=== PATIENT | male | born 1950 | race Caucasian/White ===

== ENCOUNTER 2019-11-17 03:48 | Emergency (ER) | payer MEDICARE, MEDICAID, SELFPAY ==
--- NOTE | 2019-11-17 03:52 | XRR_ITS ---
PROCEDURE INFORMATION: Exam: XR Chest, 1 View Exam date and time: 11/17/2019 4:40 AM Age: 69 years old Clinical indication: Dyspnea; Additional info: SOB TECHNIQUE: Imaging protocol: XR of the chest Views: 1 view. COMPARISON: No relevant prior studies available. FINDINGS: Lungs: Lungs are clear. Pleural space: There is no pleural effusion or pneumothorax. Heart/Mediastinum: Moderate enlargement of the cardiac silhouette. Mediastinal contours are unremarkable. Bones/joints: Bones are unremarkable. XR/XR chest 1V portable [id number] IMPRESSION: No acute findings.
[2019-11-17 03:58] VITALS: BP 134/73; PULSE 93; RESP 24; TEMP 37.1; O2SAT 96; BMI 32.1
--- NOTE | 2019-11-17 04:01 | ECG_ITS ---
Measurements Intervals [place] Rate: 83 P: DC: 0 QRS: 40 QRSD: 122 T: 17 QT: 385 QTc: 454 ATRIAL FIBRILLATION RIGHT BUNDLE BRANCH BLOCK [120+ ms QRS DURATION, UPRIGHT V1, 40+ ms S IN I/ I/aVL/V4/V5/V6] No previous ECG available for comparison Electronically Signed On 11-17-2019 19:04:47 CDT by Floresita Clayton M.D. [id number]
--- NOTE | 2019-11-17 04:02 | W.ED.SOB ---
Documented by User: Truman Smiley MD 11/17/19 05:10 HPI - SOB/Dyspnea General: Chief Complaint: Shortness of Breath/Dyspnea Stated Complaint: SOB/woke up choking Time Seen by Provider: 11/17/19 03:49 Source: patient Mode of arrival: ambulatory Limitations: no limitations History of Present Illness: HPI Narrative: 69-year-old male states he has a history of asthma. Patient states that he has been having shortness of breath since Monday. He states it is much worse this exertion. Patient denies any chest pain. He states this feels like when he has asthma attack years ago. He denies any recent long trips. Patient's currently in no distress at this time and oxygen is normal. He denies any cough or fever. MD elicited complaint: shortness of breath and asthma attack Pertinent past history: asthma Onset (ago): day(s) Severity: moderate Exacerbating factors: exertion Relieving factors: rest Associated symptoms: Deny abdominal pain, chest pain, fever(s), nausea or vomiting Review of Systems Const: Denies: fever(s), chills, body aches or change in appetite Eyes: Denies: blurry vision or eye discomfort ENMT: Denies: throat pain or dental pain Card: Denies: chest pain Resp: Reports: dyspnea GI: Denies: abdominal pain, nausea, vomiting or diarrhea : Denies: dysuria Musc: Denies: neck pain or back pain Skin/Breast: Denies: rash Neuro: Denies: headache(s) Psych: Denies: depression Marcus/Lymph: Denies: easy bruising All/Imm: Denies: urticaria PFSH ED PFSH: Social History Smoking and tobacco status: former smoker Physical Exam Const: COMMON NORMALS: no acute distress, patient oriented x3 and healthy appearing HENMT: COMMON NORMALS: normocephalic and atraumatic HEAD & SCALP: normocephalic and atraumatic Eye: COMMON NORMALS: Equal, round and reactive pupils present and EOMs intact bilaterally PUPIL: Yes Equal, round and reactive pupils present Neck/C-Spine: COMMON NORMALS: full ROM and supple Chest: COMMONS NORMALS: normal inspection of the chest and normal palpation of entire chest wall Resp: COMMON NORMALS: normal respiratory effort, No retractions and No use of accessory muscles AUSCULTATION: wheezes Cardio: COMMON NORMALS: regular rate, regular rhythm and No murmurs present (Cardio) RATE: regular rate RHYTHM: regular rhythm GI: COMMON NORMALS: Normal to inspection, nondistended, normoactive bowel sounds present, Soft to palpation, non-tender and no masses PALPATION: Yes Soft to palpation Extremity: COMMON NORMALS: normal to inspection and full ROM Neuro: COMMON NORMALS: patient oriented x3, moves all extremities and no focal motor deficits Psych: COMMON NORMALS: mental status grossly normal, Normal thought process present and cooperative THOUGHT PROCESS: Normal thought process present Skin: COMMON NORMALS: no rashes or lesions noted and no wounds GENERAL SKIN EXAM: no rashes or lesions noted Course Vital Signs: Vital signs: Vital Signs Temperature 98.7 F 11/17/19 03:58 Pulse Rate 89 11/17/19 06:32 Respiratory Rate 18 11/17/19 06:32 Blood Pressure 151/77 11/17/19 06:32 Pulse Oximetry 97 11/17/19 06:32 MDM - SOB/Dyspnea MDM Narrative: Medical decision making narrative: Daren presents for shortness of breath likely bronchitis. Patient does have an elevated d-dimer and will CT to rule out pulmonary embolism. We will also follow second troponin. Patient's care turned over to Dr. Bustos at this time. Lab Data: Labs: Lab Results 11/17/19 11/17/19 11/17/19 Range/Units 04:16 04:16 04:16 WBC 9.2 (4.0-10.0) 10^3/ uL RBC 4.13 (4.1-5.3) 10^6/u L Hgb 12.7 (11.7-16.6) g/dL Hct 38.8 L (42.0-52.0) % MCV 93.9 (80-94) fL MCH 30.8 (28.0-34.0) pg MCHC 32.7 (30.0-36.0) g/dL RDW 13.6 (12.1-15.1) % Plt Count 252 (130-400) 10^3/c mm MPV 11.0 H (7.4-10.4) fL Neut % (Auto) 56.3 % Lymph % (Auto) 29.8 % [place] % (Auto) 9.1 % Eos % (Auto) 3.5 % Baso % (Auto) 1.0 % Neut # (Auto) 5.2 (1.8-7.7) 10^3/u L Lymph # (Auto) 2.7 (0.8-4.8) 10^3/u L [place] # (Auto) 0.8 (0.2-0.9) 10^3/u L Eos # (Auto) 0.3 (0.0-0.8) 10^3/u L Baso # (Auto) 0.1 (0.0-0.1) 10^3/u L Nucleated RBC % (a uto) 0 % Nucleated RBCs # 0.0 /100WBC PT 14.10 H (10.5-13.3) SECO NDS INR 1.05 (0.8-1.2) D-Dimer (0-0.59) ug/mIFE U Sodium 139 (136-145) mmol/L Potassium 3.5 (3.5-5.1) mmol/L Chloride 97 L (98-107) mmol/L Carbon Dioxide 27 (22-29) mmol/L Anion Gap 18.5 (5-19) BUN 26 H (8-23) mg/dL Creatinine 1.5 H (0.7-1.2) mg/dL GFR Calculation 46.7 L (90-130) mL/min Glucose 186 H (65-115) mg/dL Calculated Osmolal ity 290 (285-295) mOsm/k g Calcium 7.9 L (8.5-10.5) mg/dL Total Bilirubin 0.2 (0.15-1.2) mg/dL AST 31 (0-40) U/L ALT 27 (0-41) U/L Alkaline Phosphata se 65 (40-130) IU/L Troponin T Baselin e (0-15) ng/L NT-Pro-B Natriuret Pep 1106 H (0-125) pg/mL Total Protein 6.4 L (6.6-8.7) g/dL Albumin 4.0 (3.5-5.2) g/dL Globulin 2.4 (1.3-4.6) g/dL 11/17/19 11/17/19 Range/Units 04:16 04:16 WBC (4.0-10.0) 10^3/ uL RBC (4.1-5.3) 10^6/u L Hgb (11.7-16.6) g/dL Hct (42.0-52.0) % MCV (80-94) fL MCH (28.0-34.0) pg MCHC (30.0-36.0) g/dL RDW (12.1-15.1) % Plt Count (130-400) 10^3/c mm MPV (7.4-10.4) fL Neut % (Auto) % Lymph % (Auto) % [place] % (Auto) % Eos % (Auto) % Baso % (Auto) % Neut # (Auto) (1.8-7.7) 10^3/u L Lymph # (Auto) (0.8-4.8) 10^3/u L [place] # (Auto) (0.2-0.9) 10^3/u L Eos # (Auto) (0.0-0.8) 10^3/u L Baso # (Auto) (0.0-0.1) 10^3/u L Nucleated RBC % (a uto) % Nucleated RBCs # /100WBC PT (10.5-13.3) SECO NDS INR (0.8-1.2) D-Dimer 2.25 H (0-0.59) ug/mIFE U Sodium (136-145) mmol/L Potassium (3.5-5.1) mmol/L Chloride (98-107) mmol/L Carbon Dioxide (22-29) mmol/L Anion Gap (5-19) BUN (8-23) mg/dL Creatinine (0.7-1.2) mg/dL GFR Calculation (90-130) mL/min Glucose (65-115) mg/dL Calculated Osmolal ity (285-295) mOsm/k g Calcium (8.5-10.5) mg/dL Total Bilirubin (0.15-1.2) mg/dL AST (0-40) U/L ALT (0-41) U/L Alkaline Phosphata se (40-130) IU/L Troponin T Baselin e 27 H (0-15) ng/L NT-Pro-B Natriuret Pep (0-125) pg/mL Total Protein (6.6-8.7) g/dL Albumin (3.5-5.2) g/dL Globulin (1.3-4.6) g/dL Imaging Data^: CXR: Attestation: I personally reviewed and interpreted this imaging study as follows: Radiologist's impression: [address] [place] [address] XRay Report Signed Patient: Daren Fisher Unit #: [id number] : 1950 Age/Sex: 69 / M ADM Date: 11/17/19 Loc: ER Room/Bed: Attending Dr: Ordering Provider/Ordering MD: Truman Smiley MD Date of Service: 11/17/19 Procedure(s): XR chest 1V portable [id number] Accession Number(s): [id number] Report Number: [id number] PROCEDURE INFORMATION: Exam: XR Chest, 1 View Exam date and time: 11/17/2019 4:40 AM Age: 69 years old Clinical indication: Dyspnea; Additional info: SOB TECHNIQUE: Imaging protocol: XR of the chest Views: 1 view. COMPARISON: No relevant prior studies available. FINDINGS: Lungs: Lungs are clear. Pleural space: There is no pleural effusion or pneumothorax. Heart/Mediastinum: Moderate enlargement of the cardiac silhouette. Mediastinal contours are unremarkable. Bones/joints: Bones are unremarkable. XR/XR chest 1V portable [id number] IMPRESSION: No acute findings. EKG Data^: EKG 1: Attestation: I personally reviewed and interpreted this EKG as follows: EKG Interpretation Date: 11/17/19 EKG interpretation time: 04:26 Interpretation: A. nicci heart rate [address] or T wave abnormalities QRS 122 QTC 425 Discharge Plan Discharge Patient Disposition: Home, Self-Care Clinical Impression: Bronchitis Condition: Stable Prescriptions: New Bactrim DS 800-160 mg tablet 1 tab PO Q12H 10 Days Qty: 20 RF: 0 albuterol sulfate 90 mcg/actuation HFA aerosol inhaler 2 inh INHALATION Q6H Qty: 8.5 RF: 0 Discharge Orders: Discharge Order (Routine); Ordered 11/17/19 Ordered By: Corbin Aburto Referrals: Fozia Irby FNP [Primary Care Provider] - Sign Out Sign Out Data: Patient Sign Out occurred on 11/17/19 at 06:04. Patient's care was discussed, and care was transferred from to Corbin Aburto. Coding Level of Care Code ED Last Sawyer for Chg Fwd Exam Comprehensive Documented by User: Corbin Aburto, 11/17/19 06:39 HPI - SOB/Dyspnea General: Chief Complaint: Shortness of Breath/Dyspnea Stated Complaint: SOB/woke up choking Time Seen by Provider: 11/17/19 03:49 PFSH ED PFSH: Social History Smoking and tobacco status: former smoker Course Vital Signs: Vital signs: Vital Signs Temperature 98.7 F 11/17/19 03:58 Pulse Rate 89 11/17/19 06:32 Respiratory Rate 18 11/17/19 06:32 Blood Pressure 151/77 11/17/19 06:32 Pulse Oximetry 97 11/17/19 06:32 MDM - SOB/Dyspnea Lab Data: Labs: Lab Results 11/17/19 11/17/19 11/17/19 Range/Units 04:16 04:16 04:16 WBC 9.2 (4.0-10.0) 10^3/ uL RBC 4.13 (4.1-5.3) 10^6/u L Hgb 12.7 (11.7-16.6) g/dL Hct 38.8 L (42.0-52.0) % MCV 93.9 (80-94) fL MCH 30.8 (28.0-34.0) pg MCHC 32.7 (30.0-36.0) g/dL RDW 13.6 (12.1-15.1) % Plt Count 252 (130-400) 10^3/c mm MPV 11.0 H (7.4-10.4) fL Neut % (Auto) 56.3 % Lymph % (Auto) 29.8 % [place] % (Auto) 9.1 % Eos % (Auto) 3.5 % Baso % (Auto) 1.0 % Neut # (Auto) 5.2 (1.8-7.7) 10^3/u L Lymph # (Auto) 2.7 (0.8-4.8) 10^3/u L [place] # (Auto) 0.8 (0.2-0.9) 10^3/u L Eos # (Auto) 0.3 (0.0-0.8) 10^3/u L Baso # (Auto) 0.1 (0.0-0.1) 10^3/u L Nucleated RBC % (a uto) 0 % Nucleated RBCs # 0.0 /100WBC PT 14.10 H (10.5-13.3) SECO NDS INR 1.05 (0.8-1.2) D-Dimer (0-0.59) ug/mIFE U Sodium 139 (136-145) mmol/L Potassium 3.5 (3.5-5.1) mmol/L Chloride 97 L (98-107) mmol/L Carbon Dioxide 27 (22-29) mmol/L Anion Gap 18.5 (5-19) BUN 26 H (8-23) mg/dL Creatinine 1.5 H (0.7-1.2) mg/dL GFR Calculation 46.7 L (90-130) mL/min Glucose 186 H (65-115) mg/dL Calculated Osmolal ity 290 (285-295) mOsm/k g Calcium 7.9 L (8.5-10.5) mg/dL Total Bilirubin 0.2 (0.15-1.2) mg/dL AST 31 (0-40) U/L ALT 27 (0-41) U/L Alkaline Phosphata se 65 (40-130) IU/L Troponin T Baselin e (0-15) ng/L NT-Pro-B Natriuret Pep 1106 H (0-125) pg/mL Total Protein 6.4 L (6.6-8.7) g/dL Albumin 4.0 (3.5-5.2) g/dL Globulin 2.4 (1.3-4.6) g/dL 11/17/19 11/17/19 Range/Units 04:16 04:16 WBC (4.0-10.0) 10^3/ uL RBC (4.1-5.3) 10^6/u L Hgb (11.7-16.6) g/dL Hct (42.0-52.0) % MCV (80-94) fL MCH (28.0-34.0) pg MCHC (30.0-36.0) g/dL RDW (12.1-15.1) % Plt Count (130-400) 10^3/c mm MPV (7.4-10.4) fL Neut % (Auto) % Lymph % (Auto) % [place] % (Auto) % Eos % (Auto) % Baso % (Auto) % Neut # (Auto) (1.8-7.7) 10^3/u L Lymph # (Auto) (0.8-4.8) 10^3/u L [place] # (Auto) (0.2-0.9) 10^3/u L Eos # (Auto) (0.0-0.8) 10^3/u L Baso # (Auto) (0.0-0.1) 10^3/u L Nucleated RBC % (a uto) % Nucleated RBCs # /100WBC PT (10.5-13.3) SECO NDS INR (0.8-1.2) D-Dimer 2.25 H (0-0.59) ug/mIFE U Sodium (136-145) mmol/L Potassium (3.5-5.1) mmol/L Chloride (98-107) mmol/L Carbon Dioxide (22-29) mmol/L Anion Gap (5-19) BUN (8-23) mg/dL Creatinine (0.7-1.2) mg/dL GFR Calculation (90-130) mL/min Glucose (65-115) mg/dL Calculated Osmolal ity (285-295) mOsm/k g Calcium (8.5-10.5) mg/dL Total Bilirubin (0.15-1.2) mg/dL AST (0-40) U/L ALT (0-41) U/L Alkaline Phosphata se (40-130) IU/L Troponin T Baselin e 27 H (0-15) ng/L NT-Pro-B Natriuret Pep (0-125) pg/mL Total Protein (6.6-8.7) g/dL Albumin (3.5-5.2) g/dL Globulin (1.3-4.6) g/dL Discharge Plan Discharge Patient Disposition: Home, Self-Care Clinical Impression: Bronchitis Condition: Stable Prescriptions: New Bactrim DS 800-160 mg tablet 1 tab PO Q12H 10 Days Qty: 20 RF: 0 albuterol sulfate 90 mcg/actuation HFA aerosol inhaler 2 inh INHALATION Q6H Qty: 8.5 RF: 0 Discharge Orders: Discharge Order (Routine); Ordered 11/17/19 Ordered By: Corbin Aburto Referrals: Fozia Irby [employer] SALES REPRESENTATIVE [Primary Care Provider] - Sign Out Sign Out Data: Patient Sign Out occurred on 11/17/19 at 06:04. Patient's care was discussed, and care was transferred from to Corbin Aburto. Coding Level of Care Code ED Last Sawyer for Chg Fwd Exam Comprehensive
--- NOTE | 2019-11-17 04:04 | PC.NURSE ---
Pt states that he left his list of medications at home.
[2019-11-17 04:12] VITALS: PULSE 89; RESP 20; O2SAT 97
[2019-11-17] MEDS: ipratropium-albuterol 3 mL Neb INHALATION (04:12)
[2019-11-17 04:15] VITALS: PULSE 89
[2019-11-17 04:27] LABS: Basophils # 0.1 10^3/uL (0.0-0.1); Eosinophils # 0.3 10^3/uL (0.0-0.8); Eosinophils % 3.5 %; Hematocrit 38.8 % (42.0-52.0); Hemoglobin 12.7 g/dL (11.7-16.6); Lymphocytes # 2.7 10^3/uL (0.8-4.8); Lymphocytes % 29.8 %; Mean Corpuscular HGB Conc 32.7 g/dL (30.0-36.0); Mean Corpuscular Hemoglobin 30.8 pg (28.0-34.0); Mean Corpuscular Volume 93.9 fL (80-94); Monocytes # 0.8 10^3/uL (0.2-0.9); Monocytes % 9.1 %; Neutrophils # 5.2 10^3/uL (1.8-7.7); Neutrophils % 56.3 %; Nucleated Red Blood Cells % 0 %; Platelet Count 252 10^3/cmm (130-400); Red Blood Count 4.13 10^6/uL (4.1-5.3); Red Cell Distribution Width 13.6 % (12.1-15.1); White Blood Count 9.2 10^3/uL (4.0-10.0)
[2019-11-17 04:36] LABS: INR 1.05 (0.8-1.2)
[2019-11-17 04:45] LABS: Troponin(5th) Baseline 27 ng/L (0-15)
[2019-11-17 04:50] LABS: Alanine Aminotransferase 27 U/L (0-41); Alkaline Phosphatase 65 IU/L (40-130); Anion Gap 18.5 (5-19); Aspartate Amino Transferase 31 U/L (0-40); Blood Urea Nitrogen 26 mg/dL (8-23); Calcium 7.9 mg/dL (8.5-10.5); Carbon Dioxide 27 mmol/L (22-29); Chloride 97 mmol/L (98-107); Globulin 2.4 g/dL (1.3-4.6); Glomerular Filtration Rate 46.7 mL/min (90-130); Glucose 186 mg/dL (65-115); NT Pro B Type Natriuretic Pept 1106 pg/mL (0-125); Osmolality Calculated 290 mOsm/kg (285-295); Potassium 3.5 mmol/L (3.5-5.1); Sodium 139 mmol/L (136-145); Total Bilirubin 0.2 mg/dL (0.15-1.2); Total Protein 6.4 g/dL (6.6-8.7)
[2019-11-17 05:06] LABS: D Dimer 2.25 ug/mIFEU (0-0.59)
--- NOTE | 2019-11-17 05:08 | CTR_ITS ---
PROCEDURE INFORMATION: Exam: CT Angiography Chest With Contrast Exam date and time: 11/17/2019 5:52 AM Age: 69 years old Clinical indication: Shortness of breath; Additional info: SOB TECHNIQUE: Imaging protocol: Computed tomographic angiography of the chest with intravenous contrast. 3D rendering: MIP and/or 3D reconstructed images were created by the technologist. Radiation optimization: All CT scans at this facility use at least one of these dose optimization techniques: automated exposure control; mA and/or kV adjustment per patient size (includes targeted exams where dose is matched to clinical indication); or iterative reconstruction. Contrast material: VISI 320; Contrast volume: 95 ml; Contrast route: LT AC; COMPARISON: CR XR chest 1V portable [id number] 11/17/2019 4:30 AM RADIATION DOSE METRICS: Total DLP: 643.92 mGy-cm FINDINGS: Pulmonary arteries: No visualized embolism as characterized to the most proximal segmental level. Consider alternative form of imaging if indicated. Aorta: Limited opacification of the thoracic aorta. No dissection. Thyroid: Soft tissue mass within the anterior mediastinum is believed to be thyroid. Lungs: Lungs are well aerated without a focal area of consolidation. Calcified granulomas most notably within the middle lobe Pleural space: Unremarkable. No pneumothorax. No pleural effusion. Heart: Unremarkable. No cardiomegaly. No pericardial effusion. Lymph nodes: Numerous calcified lymph nodes are present within the mediastinum and hilum. These are likely the radiographic manifestation of granulomatous disease. Liver: Hepatomegaly. Bones/joints: Unremarkable. No acute fracture. Soft tissues: Unremarkable. CT/CT angio chest PE protcl [id number] IMPRESSION: 1. No visualized embolism as characterized to the most proximal segmental level. Consider alternative form of imaging if indicated. 2. Soft tissue mass within the anterior mediastinum is believed to be thyroid. 3. Limited opacification of the thoracic aorta. No dissection. 4. Hepatomegaly. 5. Lungs are well aerated without a focal area of consolidation. COMMENTS: Consistent with the [place] [employer]'s Incidental Findings Committee white paper (J Am Mallory Radiol 2015): In patients aged 35 years and older with an incidental thyroid nodule equal to or greater than 1.[address], MRI or extrathyroidal US, further evaluation with dedicated thyroid US is recommended for patients with normal life expectancy and without comorbidities. For smaller nodules without suspicious features, no further evaluation or follow up is recommended. Radiation Dose CTDIVOL = (mGy): DLP = 643.92 (mGy-cm)
[2019-11-17 06:32] VITALS: BP 151/77; PULSE 89; RESP 18; O2SAT 97
== END 2019-11-17 06:49 | disposition home or self-care (01) ==
PROVIDERS: Emergency Medicine; Emergency Provider Family Medicine; PCP Nurse Practitioner Family
DX: J40 Bronchitis, not specified as acute or chronic (principal); Z87.891 Personal history of nicotine dependence
CPT/HCPCS: 12345; 71045; 71275; 80053; 83880; 84484; 85025; 85378; 85610; 93005; 94640; 96374; 96375; 99282; 99284; J2930; J7611

== ENCOUNTER → 2020-01-28 14:10 | Outpatient (BNVA) | payer MEDICARE, MEDICAID, SELFPAY | PROVIDERS: PCP Nurse Practitioner Family; Visit Provider Internal Medicine | DX: J06.9 Acute upper respiratory infection, unspecified (principal) | CPT/HCPCS: 87635 ==

== ENCOUNTER 2020-01-30 07:59 | Outpatient (CLI) | payer MEDICARE, SELFPAY ==
--- NOTE | 2020-01-30 08:20 | XR_ITS ---
WS: [id number] EXAM: Chest: PA and lateral DATE OF EXAMINATION: 01/30/2000 COMPARISON: Chest x-ray from 11/17/2019 HISTORY: Patient is 69 years old with cough for the last week. FINDINGS: The heart size is normal. The mediastinal contours are are similar.. Pulmonary vascularity is withi n normal limits. Chronic lung changes are demonstrated. Some degree of fibrosis is seen bilaterally. There is definite patchy peripheral infiltrate seen in the left mid and lower chest as well as behind the heart which is new since the prior examination. I also question some minimal peripheral patchy i nfiltrate within the right mid and lower chest. No effusion, or pneumothorax. Multilevel degenerativ e changes are seen in the spine. XR/XR chest 2V* [id number] IMPRESSION: Chronic lung changes demonstrated with underlying fibrosis interval findings of development of what appears to be patchy bilateral pneumonitis, left worse t wilson right.
== END 2020-01-30 08:00 | disposition home or self-care (01) ==
LOC: RADWPI 08:04
PROVIDERS: PCP Nurse Practitioner Family; Visit Provider Nurse Practitioner Family
DX: R05 Cough (principal); J84.10 Pulmonary fibrosis, unspecified
CPT/HCPCS: 71046

== ENCOUNTER 2021-02-16 13:15 | Outpatient (CLI) | payer MEDICARE, SELFPAY | END 2021-02-16 13:16 | disposition home or self-care (01) | LOC: WOUND 13:16 | PROVIDERS: PCP Nurse Practitioner Family; Visit Provider Emergency Medicine | DX: E11.621 Type 2 diabetes mellitus with foot ulcer (principal); L97.512 Non-pressure chronic ulcer of other part of right foot with fat layer exposed; E11.622 Type 2 diabetes mellitus with other skin ulcer; L97.822 Non-pressure chronic ulcer of other part of left lower leg with fat layer exposed; Z87.891 Personal history of nicotine dependence; L97.519 Non-pressure chronic ulcer of other part of right foot with unspecified severity | CPT/HCPCS: 11042; 73630; 87070; 87077; 87176; 87186; 87205; G0463 ==

== ENCOUNTER 2021-02-16 14:53 | Outpatient (CLI) | payer MEDICARE, SELFPAY ==
--- NOTE | 2021-02-16 15:00 | XR_ITS ---
WS: [id number] RIGHT FOOT: 3 VIEW(S) TECHNIQUE: AP, oblique and lateral. HISTORY: TYPE II DIABETES, FOOT ULCER COMPARISON: None available. No acute fracture or dislocation. Mild osteoarthritic changes at the midfoot and at the interphalangeal joints. Soft tissue erosion lori suring 10 mm involving the distal second toe. Very mild loss of normal cortex of the distal phalanx. Suspicious for osteomyelitis. Small calcaneal spur. XR/XR foot RT min 3V* [id number] IMPRESSION: 1. 10 mm soft tissue ulceration involving the distal second toe. 2. Suspicious for early changes of osteomyelitis involving the terminal tuft s econd toe.
== END 2021-02-16 14:54 | disposition home or self-care (01) ==
PROVIDERS: PCP Clinical Nurse Specialist Adult Health; Visit Provider Emergency Medicine
DX: E11.621 Type 2 diabetes mellitus with foot ulcer (principal); L97.519 Non-pressure chronic ulcer of other part of right foot with unspecified severity
CPT/HCPCS: 73630

== ENCOUNTER 2021-02-23 08:07 | Outpatient (CLI) | payer MEDICARE, SELFPAY | END 2021-02-23 08:08 | disposition home or self-care (01) | LOC: WOUND 08:09 | PROVIDERS: PCP Clinical Nurse Specialist Adult Health; Visit Provider Thoracic Surgery (Cardiothoracic Vascular Surgery) | DX: E11.621 Type 2 diabetes mellitus with foot ulcer (principal); L97.516 Non-pressure chronic ulcer of other part of right foot with bone involvement without evidence of necrosis; E11.622 Type 2 diabetes mellitus with other skin ulcer; L97.822 Non-pressure chronic ulcer of other part of left lower leg with fat layer exposed; Z87.891 Personal history of nicotine dependence; L97.509 Non-pressure chronic ulcer of other part of unspecified foot with unspecified severity | CPT/HCPCS: 11042; 36415; 80053; 84134; 85025; 85651; 86140 ==

== ENCOUNTER 2021-02-23 15:18 | Outpatient (CLI) | payer MEDICARE, SELFPAY ==
[2021-02-23 15:42] LABS: Basophils # 0.1 10^3/uL (0.0-0.1); Basophils % 0.9 %; Eosinophils # 0.2 10^3/uL (0.0-0.8); Eosinophils % 1.7 %; Hematocrit 40.7 % (42.0-52.0); Hemoglobin 13.4 g/dL (11.7-16.6); Lymphocytes # 2.2 10^3/uL (0.8-4.8); Lymphocytes % 24.5 %; Mean Corpuscular HGB Conc 32.9 g/dL (30.0-36.0); Mean Corpuscular Hemoglobin 30.8 pg (28.0-34.0); Mean Corpuscular Volume 93.6 fl (80-94); Mean Platelet Volume 9.8 fL (7.4-10.4); Monocytes # 0.8 10^3/uL (0.2-0.9); Monocytes % 8.4 %; Neutrophils # 5.85 10^3/uL (1.8-7.7); Neutrophils % 64.3 %; Nucleated Red Blood Cells % 0 %; Platelet Count 279 10^3/cmm (130-400); Red Blood Count 4.35 10^6/uL (4.1-5.3); White Blood Count 9.1 10^3/uL (4.0-10.0)
[2021-02-23 16:27] LABS: Alanine Aminotransferase 23 U/L (0-41); Albumin Level 3.9 g/dL (3.5-5.2); Alkaline Phosphatase 69 IU/L (40-130); Anion Gap 17.8 (5-19); Aspartate Amino Transferase 26 U/L (0-40); Blood Urea Nitrogen 21 mg/dL (8-23); C Reactive Protein 4.6 mg/L (0.0-4.9); Calcium 8.8 mg/dL (8.5-10.5); Carbon Dioxide 27 mmol/L (22-29); Chloride 95 mmol/L (98-107); Globulin 3.3 g/dL (1.3-4.6); Glomerular Filtration Rate 74.3 mL/min (90-130); Glucose 155 mg/dL (65-115); Osmolality Calculated 288 mOsm/kg (285-295); Potassium 3.8 mmol/L (3.5-5.1); Sodium 136 mmol/L (136-145); Total Bilirubin 0.2 mg/dL (0.15-1.2); Total Protein 7.2 g/dL (6.6-8.7)
[2021-02-23 17:18] LABS: Prealbumin 26.3 mg/dL (20-40)
[2021-02-23 17:31] LABS: Erythrocyte Sedimentation Rate 40 mm/hr (0-10)
== END 2021-02-23 15:19 | disposition home or self-care (01) ==
LOC: LAB 15:22
PROVIDERS: PCP Clinical Nurse Specialist Adult Health; Visit Provider Thoracic Surgery (Cardiothoracic Vascular Surgery)
DX: E11.621 Type 2 diabetes mellitus with foot ulcer (principal); L97.509 Non-pressure chronic ulcer of other part of unspecified foot with unspecified severity
CPT/HCPCS: 36415; 80053; 84134; 85025; 85651; 86140

== ENCOUNTER 2021-03-02 08:15 | Outpatient (CLI) | payer MEDICARE, SELFPAY | END 2021-03-02 08:16 | disposition home or self-care (01) | LOC: WOUND 08:16 | PROVIDERS: PCP Clinical Nurse Specialist Adult Health; Visit Provider Thoracic Surgery (Cardiothoracic Vascular Surgery) | DX: E11.621 Type 2 diabetes mellitus with foot ulcer (principal); L97.511 Non-pressure chronic ulcer of other part of right foot limited to breakdown of skin; E11.622 Type 2 diabetes mellitus with other skin ulcer; L97.829 Non-pressure chronic ulcer of other part of left lower leg with unspecified severity; Z87.891 Personal history of nicotine dependence | CPT/HCPCS: 97597 ==

== ENCOUNTER 2021-03-09 08:20 | Outpatient (CLI) | payer MEDICARE, SELFPAY | END 2021-03-09 08:21 | disposition home or self-care (01) | LOC: WOUND 08:21 | PROVIDERS: PCP Clinical Nurse Specialist Adult Health; Visit Provider Thoracic Surgery (Cardiothoracic Vascular Surgery) | DX: E11.621 Type 2 diabetes mellitus with foot ulcer (principal); L97.511 Non-pressure chronic ulcer of other part of right foot limited to breakdown of skin; Z87.891 Personal history of nicotine dependence | CPT/HCPCS: 97597 ==

== ENCOUNTER 2021-03-16 08:11 | Outpatient (CLI) | payer MEDICARE, SELFPAY | END 2021-03-16 08:12 | disposition home or self-care (01) | LOC: WOUND 08:12 | PROVIDERS: PCP Clinical Nurse Specialist Adult Health; Visit Provider Thoracic Surgery (Cardiothoracic Vascular Surgery) | DX: E11.621 Type 2 diabetes mellitus with foot ulcer (principal); L97.511 Non-pressure chronic ulcer of other part of right foot limited to breakdown of skin; Z87.891 Personal history of nicotine dependence | CPT/HCPCS: 36415; 80048; 85025; 97597 ==

== ENCOUNTER 2021-03-16 09:04 | Outpatient (CLI) | payer MEDICARE, SELFPAY ==
[2021-03-16 09:46] LABS: Basophils # 0.1 10^3/uL (0.0-0.1); Basophils % 0.9 %; Eosinophils # 0.2 10^3/uL (0.0-0.8); Eosinophils % 2.3 %; Hematocrit 39.3 % (42.0-52.0); Hemoglobin 12.6 g/dL (11.7-16.6); Lymphocytes # 1.8 10^3/uL (0.8-4.8); Lymphocytes % 17.4 %; Mean Corpuscular HGB Conc 32.1 g/dL (30.0-36.0); Mean Corpuscular Volume 96.8 fl (80-94); Mean Platelet Volume 9.8 fL (7.4-10.4); Monocytes # 0.8 10^3/uL (0.2-0.9); Neutrophils % 71.1 %; Nucleated Red Blood Cells % 0 %; Platelet Count 230 10^3/cmm (130-400); Red Blood Count 4.06 10^6/uL (4.1-5.3); Red Cell Distribution Width 14.9 % (12.1-15.1); White Blood Count 10.1 10^3/uL (4.0-10.0)
[2021-03-16 10:14] LABS: Anion Gap 19.1 (5-19); Blood Urea Nitrogen 19 mg/dL (8-23); Calcium 8.6 mg/dL (8.5-10.5); Carbon Dioxide 25 mmol/L (22-29); Chloride 99 mmol/L (98-107); Glomerular Filtration Rate 66.6 mL/min (90-130); Glucose 152 mg/dL (65-115); Osmolality Calculated 293 mOsm/kg (285-295); Potassium 4.1 mmol/L (3.5-5.1); Sodium 139 mmol/L (136-145)
== END 2021-03-16 09:05 | disposition home or self-care (01) ==
LOC: LAB 09:10
PROVIDERS: PCP Clinical Nurse Specialist Adult Health; Visit Provider Thoracic Surgery (Cardiothoracic Vascular Surgery)
DX: E11.621 Type 2 diabetes mellitus with foot ulcer (principal)
CPT/HCPCS: 36415; 80048; 85025

== ENCOUNTER 2021-03-24 08:18 | Outpatient (CLI) | payer MEDICARE, SELFPAY | END 2021-03-24 08:19 | disposition home or self-care (01) | LOC: WOUND 08:19 | PROVIDERS: PCP Clinical Nurse Specialist Adult Health; Visit Provider Thoracic Surgery (Cardiothoracic Vascular Surgery) | DX: E11.621 Type 2 diabetes mellitus with foot ulcer (principal); L97.511 Non-pressure chronic ulcer of other part of right foot limited to breakdown of skin; I87.2 Venous insufficiency (chronic) (peripheral); L97.822 Non-pressure chronic ulcer of other part of left lower leg with fat layer exposed; Z87.891 Personal history of nicotine dependence | CPT/HCPCS: 11042; 97597 ==

== ENCOUNTER 2021-03-26 07:49 | Outpatient (CLI) | payer MEDICARE, SELFPAY | END 2021-03-26 07:50 | disposition home or self-care (01) | LOC: WOUND 07:50 | PROVIDERS: PCP Clinical Nurse Specialist Adult Health; Visit Provider Nurse Practitioner Family | DX: E11.621 Type 2 diabetes mellitus with foot ulcer (principal); L97.511 Non-pressure chronic ulcer of other part of right foot limited to breakdown of skin; I87.2 Venous insufficiency (chronic) (peripheral); L97.822 Non-pressure chronic ulcer of other part of left lower leg with fat layer exposed | CPT/HCPCS: 29581; A6252 ==

== ENCOUNTER 2021-03-31 08:39 | Outpatient (CLI) | payer MEDICARE, SELFPAY | END 2021-03-31 08:40 | disposition home or self-care (01) | LOC: WOUND 08:40 | PROVIDERS: PCP Clinical Nurse Specialist Adult Health; Visit Provider Nurse Practitioner Family | DX: E11.621 Type 2 diabetes mellitus with foot ulcer (principal); L97.512 Non-pressure chronic ulcer of other part of right foot with fat layer exposed; I87.2 Venous insufficiency (chronic) (peripheral); L97.822 Non-pressure chronic ulcer of other part of left lower leg with fat layer exposed; Z87.891 Personal history of nicotine dependence | CPT/HCPCS: 11042 ==

== ENCOUNTER 2021-04-07 08:03 | Outpatient (CLI) | payer MEDICARE, SELFPAY | END 2021-04-07 08:04 | disposition home or self-care (01) | LOC: WOUND 08:04 | PROVIDERS: PCP Clinical Nurse Specialist Adult Health; Visit Provider Thoracic Surgery (Cardiothoracic Vascular Surgery) | DX: E11.621 Type 2 diabetes mellitus with foot ulcer (principal); L97.511 Non-pressure chronic ulcer of other part of right foot limited to breakdown of skin; I87.2 Venous insufficiency (chronic) (peripheral); L97.822 Non-pressure chronic ulcer of other part of left lower leg with fat layer exposed; Z87.891 Personal history of nicotine dependence | CPT/HCPCS: 29581 ==

== ENCOUNTER 2021-04-14 08:19 | Outpatient (CLI) | payer MEDICARE, SELFPAY | END 2021-04-14 08:20 | disposition home or self-care (01) | LOC: WOUND 08:20 | PROVIDERS: PCP Clinical Nurse Specialist Adult Health; Visit Provider Thoracic Surgery (Cardiothoracic Vascular Surgery) | DX: I96 Gangrene, not elsewhere classified (principal); E11.621 Type 2 diabetes mellitus with foot ulcer; L97.511 Non-pressure chronic ulcer of other part of right foot limited to breakdown of skin; Z87.891 Personal history of nicotine dependence; I10 Essential (primary) hypertension; M06.9 Rheumatoid arthritis, unspecified | CPT/HCPCS: 97597 ==

== ENCOUNTER 2021-04-21 08:00 | Outpatient (CLI) | payer MEDICARE, SELFPAY | END 2021-04-21 08:01 | disposition home or self-care (01) | LOC: WOUND 08:02 | PROVIDERS: PCP Clinical Nurse Specialist Adult Health; Visit Provider Thoracic Surgery (Cardiothoracic Vascular Surgery) | DX: E11.621 Type 2 diabetes mellitus with foot ulcer (principal); L97.511 Non-pressure chronic ulcer of other part of right foot limited to breakdown of skin; Z87.891 Personal history of nicotine dependence | CPT/HCPCS: 97597 ==

== ENCOUNTER 2021-04-28 08:16 | Outpatient (CLI) | payer MEDICARE, SELFPAY | END 2021-04-28 08:17 | disposition home or self-care (01) | LOC: WOUND 08:18 | PROVIDERS: PCP Clinical Nurse Specialist Adult Health; Visit Provider Nurse Practitioner Family | DX: E11.621 Type 2 diabetes mellitus with foot ulcer (principal); L97.512 Non-pressure chronic ulcer of other part of right foot with fat layer exposed; I10 Essential (primary) hypertension; M06.9 Rheumatoid arthritis, unspecified; Z87.891 Personal history of nicotine dependence | CPT/HCPCS: 11042 ==

== ENCOUNTER 2021-05-12 08:13 | Outpatient (CLI) | payer MEDICARE, SELFPAY | END 2021-05-12 08:14 | disposition home or self-care (01) | LOC: WOUND 08:14 | PROVIDERS: PCP Clinical Nurse Specialist Adult Health; Visit Provider Nurse Practitioner Family | DX: E11.621 Type 2 diabetes mellitus with foot ulcer (principal); L97.511 Non-pressure chronic ulcer of other part of right foot limited to breakdown of skin; I87.2 Venous insufficiency (chronic) (peripheral); L97.811 Non-pressure chronic ulcer of other part of right lower leg limited to breakdown of skin; I10 Essential (primary) hypertension; M06.9 Rheumatoid arthritis, unspecified; Z87.891 Personal history of nicotine dependence | CPT/HCPCS: 11042 ==

== ENCOUNTER 2021-05-19 08:10 | Outpatient (CLI) | payer MEDICARE, SELFPAY | END 2021-05-19 08:11 | disposition home or self-care (01) | LOC: WOUND 08:11 | PROVIDERS: PCP Clinical Nurse Specialist Adult Health; Visit Provider Thoracic Surgery (Cardiothoracic Vascular Surgery) | DX: E11.621 Type 2 diabetes mellitus with foot ulcer (principal); L97.511 Non-pressure chronic ulcer of other part of right foot limited to breakdown of skin; I87.2 Venous insufficiency (chronic) (peripheral); L97.811 Non-pressure chronic ulcer of other part of right lower leg limited to breakdown of skin; Z87.891 Personal history of nicotine dependence | CPT/HCPCS: 97597; A6252 ==

== ENCOUNTER 2021-05-24 15:22 | Outpatient (CLI) | payer MEDICARE, SELFPAY | END 2021-05-24 15:23 | disposition home or self-care (01) | LOC: WOUND 15:24 | PROVIDERS: PCP Clinical Nurse Specialist Adult Health; Visit Provider Emergency Medicine | DX: E11.621 Type 2 diabetes mellitus with foot ulcer (principal); L97.511 Non-pressure chronic ulcer of other part of right foot limited to breakdown of skin; I87.2 Venous insufficiency (chronic) (peripheral); L97.811 Non-pressure chronic ulcer of other part of right lower leg limited to breakdown of skin; Z87.891 Personal history of nicotine dependence | CPT/HCPCS: 29581; A6252 ==

== ENCOUNTER 2021-05-26 08:36 | Outpatient (CLI) | payer MEDICARE, SELFPAY | END 2021-05-26 08:37 | disposition home or self-care (01) | LOC: WOUND 08:39 | PROVIDERS: PCP Clinical Nurse Specialist Adult Health; Visit Provider Thoracic Surgery (Cardiothoracic Vascular Surgery) | DX: E11.621 Type 2 diabetes mellitus with foot ulcer (principal); L97.519 Non-pressure chronic ulcer of other part of right foot with unspecified severity; I87.2 Venous insufficiency (chronic) (peripheral); L97.811 Non-pressure chronic ulcer of other part of right lower leg limited to breakdown of skin; Z87.891 Personal history of nicotine dependence | CPT/HCPCS: 97597; A6252 ==

== ENCOUNTER 2021-06-02 08:06 | Outpatient (CLI) | payer MEDICARE, SELFPAY | END 2021-06-02 08:07 | disposition home or self-care (01) | LOC: WOUND 08:07 | PROVIDERS: PCP Clinical Nurse Specialist Adult Health; Visit Provider Nurse Practitioner Family | DX: E11.621 Type 2 diabetes mellitus with foot ulcer (principal); L97.511 Non-pressure chronic ulcer of other part of right foot limited to breakdown of skin; Z87.891 Personal history of nicotine dependence | CPT/HCPCS: 11042; A6212 ==

== ENCOUNTER 2021-06-09 07:53 | Outpatient (CLI) | payer MEDICARE, SELFPAY | END 2021-06-09 07:54 | disposition home or self-care (01) | LOC: WOUND 07:54 | PROVIDERS: PCP Clinical Nurse Specialist Adult Health; Visit Provider Nurse Practitioner Family | DX: Z09 Encounter for follow-up examination after completed treatment for conditions other than malignant neoplasm (principal); Z87.891 Personal history of nicotine dependence; E11.9 Type 2 diabetes mellitus without complications | CPT/HCPCS: 99212 ==

== ENCOUNTER → 2021-12-23 08:20 | Outpatient (BNVA) | payer MEDICARE, MEDICAID, SELFPAY | PROVIDERS: PCP Clinical Nurse Specialist Adult Health; Visit Provider Nurse Practitioner Family | DX: I96 Gangrene, not elsewhere classified (principal); L97.821 Non-pressure chronic ulcer of other part of left lower leg limited to breakdown of skin; L97.811 Non-pressure chronic ulcer of other part of right lower leg limited to breakdown of skin | CPT/HCPCS: 11042; 99213 ==

== ENCOUNTER → 2021-12-27 10:24 | Outpatient (BNVA) | payer MEDICARE, MEDICAID, SELFPAY | PROVIDERS: PCP Clinical Nurse Specialist Adult Health; Visit Provider Thoracic Surgery (Cardiothoracic Vascular Surgery) | DX: Z51.89 Encounter for other specified aftercare (principal) | CPT/HCPCS: 29581 ==

== ENCOUNTER → 2021-12-30 13:04 | Outpatient (BNVA) | payer MEDICARE, MEDICAID, SELFPAY | PROVIDERS: PCP Clinical Nurse Specialist Adult Health; Visit Provider Nurse Practitioner Family | DX: I96 Gangrene, not elsewhere classified (principal); L97.821 Non-pressure chronic ulcer of other part of left lower leg limited to breakdown of skin; L97.811 Non-pressure chronic ulcer of other part of right lower leg limited to breakdown of skin | CPT/HCPCS: 29581 ==

== ENCOUNTER → 2022-01-05 13:20 | Outpatient (BNVA) | payer MEDICARE, MEDICAID, SELFPAY | PROVIDERS: PCP Clinical Nurse Specialist Adult Health; Visit Provider Nurse Practitioner Family | DX: Z09 Encounter for follow-up examination after completed treatment for conditions other than malignant neoplasm (principal) | CPT/HCPCS: 99212 ==

== ENCOUNTER → 2022-01-24 06:51 | Outpatient (BNVA) | payer MEDICARE, MEDICAID, SELFPAY | PROVIDERS: PCP Clinical Nurse Specialist Adult Health; Visit Provider Clinical Nurse Specialist Adult Health | DX: E11.610 Type 2 diabetes mellitus with diabetic neuropathic arthropathy (principal); I10 Essential (primary) hypertension; E78.5 Hyperlipidemia, unspecified | CPT/HCPCS: 80053; 83036; 85025 ==

== ENCOUNTER → 2022-01-24 09:07 | Outpatient (BNVA) | payer MEDICARE, MEDICAID, SELFPAY | PROVIDERS: PCP Clinical Nurse Specialist Adult Health; Referring Provider Nurse Practitioner Family; Visit Provider Podiatrist Foot & Ankle Surgery | DX: E11.8 Type 2 diabetes mellitus with unspecified complications (principal); E11.610 Type 2 diabetes mellitus with diabetic neuropathic arthropathy; B35.1 Tinea unguium; G62.9 Polyneuropathy, unspecified; L60.3 Nail dystrophy; Z79.84 Long term (current) use of oral hypoglycemic drugs | CPT/HCPCS: 11055; 11721 ==

== ENCOUNTER → 2022-03-28 09:23 | Outpatient (BNVA) | payer MEDICARE, MEDICAID, SELFPAY | PROVIDERS: PCP Clinical Nurse Specialist Adult Health; Visit Provider Podiatrist Foot & Ankle Surgery | DX: E11.8 Type 2 diabetes mellitus with unspecified complications (principal); E11.610 Type 2 diabetes mellitus with diabetic neuropathic arthropathy; B35.1 Tinea unguium; G62.9 Polyneuropathy, unspecified; I83.009 Varicose veins of unspecified lower extremity with ulcer of unspecified site; L97.919 Non-pressure chronic ulcer of unspecified part of right lower leg with unspecified severity; L97.929 Non-pressure chronic ulcer of unspecified part of left lower leg with unspecified severity; Z79.84 Long term (current) use of oral hypoglycemic drugs | CPT/HCPCS: 99213 ==

== ENCOUNTER → 2022-04-12 08:06 | Outpatient (BNVA) | payer MEDICARE, MEDICAID, SELFPAY | PROVIDERS: PCP Clinical Nurse Specialist Adult Health; Visit Provider Nurse Practitioner Family | DX: I96 Gangrene, not elsewhere classified (principal); I87.2 Venous insufficiency (chronic) (peripheral); L97.812 Non-pressure chronic ulcer of other part of right lower leg with fat layer exposed; L97.822 Non-pressure chronic ulcer of other part of left lower leg with fat layer exposed | CPT/HCPCS: 11042; 99213; A6210; A6251 ==

== ENCOUNTER → 2022-04-13 07:49 | Outpatient (BNVA) | payer MEDICARE, MEDICAID, SELFPAY | PROVIDERS: PCP Clinical Nurse Specialist Adult Health; Visit Provider Clinical Nurse Specialist Adult Health | DX: E11.610 Type 2 diabetes mellitus with diabetic neuropathic arthropathy (principal); E78.5 Hyperlipidemia, unspecified; I10 Essential (primary) hypertension; E78.2 Mixed hyperlipidemia | CPT/HCPCS: 80053; 80061; 83036; 85025 ==

== ENCOUNTER → 2022-04-15 07:56 | Outpatient (BNVA) | payer MEDICARE, MEDICAID, SELFPAY | PROVIDERS: PCP Clinical Nurse Specialist Adult Health; Visit Provider Surgery | DX: I96 Gangrene, not elsewhere classified (principal); I87.2 Venous insufficiency (chronic) (peripheral); L97.812 Non-pressure chronic ulcer of other part of right lower leg with fat layer exposed; L97.822 Non-pressure chronic ulcer of other part of left lower leg with fat layer exposed | CPT/HCPCS: 29581; A6252 ==

== ENCOUNTER → 2022-04-21 09:50 | Outpatient (BNVA) | payer MEDICARE, MEDICAID, SELFPAY | PROVIDERS: PCP Clinical Nurse Specialist Adult Health; Visit Provider Nurse Practitioner Family | DX: I96 Gangrene, not elsewhere classified (principal); I87.2 Venous insufficiency (chronic) (peripheral); L97.812 Non-pressure chronic ulcer of other part of right lower leg with fat layer exposed; L97.822 Non-pressure chronic ulcer of other part of left lower leg with fat layer exposed | CPT/HCPCS: 11042 ==

== ENCOUNTER → 2022-04-28 08:00 | Outpatient (BNVA) | payer MEDICARE, MEDICAID, SELFPAY | PROVIDERS: PCP Clinical Nurse Specialist Adult Health; Visit Provider Nurse Practitioner Family | DX: I96 Gangrene, not elsewhere classified (principal); I87.2 Venous insufficiency (chronic) (peripheral); L97.812 Non-pressure chronic ulcer of other part of right lower leg with fat layer exposed; L97.822 Non-pressure chronic ulcer of other part of left lower leg with fat layer exposed | CPT/HCPCS: 99212 ==

== ENCOUNTER → 2022-05-30 08:46 | Outpatient (BNVA) | payer MEDICARE, MEDICAID, SELFPAY | PROVIDERS: PCP Clinical Nurse Specialist Adult Health; Visit Provider Podiatrist Foot & Ankle Surgery | DX: E11.8 Type 2 diabetes mellitus with unspecified complications (principal); E11.610 Type 2 diabetes mellitus with diabetic neuropathic arthropathy; E11.622 Type 2 diabetes mellitus with other skin ulcer; L97.811 Non-pressure chronic ulcer of other part of right lower leg limited to breakdown of skin; L97.821 Non-pressure chronic ulcer of other part of left lower leg limited to breakdown of skin; Z79.84 Long term (current) use of oral hypoglycemic drugs; B35.1 Tinea unguium; G62.9 Polyneuropathy, unspecified; I83.009 Varicose veins of unspecified lower extremity with ulcer of unspecified site | CPT/HCPCS: 11721; 99213 ==

== ENCOUNTER → 2022-06-14 08:14 | Outpatient (BNVA) | payer MEDICARE, MEDICAID, SELFPAY | PROVIDERS: PCP Clinical Nurse Specialist Adult Health; Visit Provider Podiatrist Foot & Ankle Surgery | DX: E11.621 Type 2 diabetes mellitus with foot ulcer (principal); L97.522 Non-pressure chronic ulcer of other part of left foot with fat layer exposed; L97.521 Non-pressure chronic ulcer of other part of left foot limited to breakdown of skin; Z79.84 Long term (current) use of oral hypoglycemic drugs; E11.610 Type 2 diabetes mellitus with diabetic neuropathic arthropathy; B35.1 Tinea unguium; G62.9 Polyneuropathy, unspecified; I83.009 Varicose veins of unspecified lower extremity with ulcer of unspecified site | CPT/HCPCS: 99213 ==

== ENCOUNTER → 2022-06-22 07:56 | Outpatient (BNVA) | payer MEDICARE, MEDICAID, SELFPAY | PROVIDERS: PCP Clinical Nurse Specialist Adult Health; Visit Provider Thoracic Surgery (Cardiothoracic Vascular Surgery) | DX: I96 Gangrene, not elsewhere classified (principal); E11.621 Type 2 diabetes mellitus with foot ulcer; L97.522 Non-pressure chronic ulcer of other part of left foot with fat layer exposed; L97.512 Non-pressure chronic ulcer of other part of right foot with fat layer exposed; E11.622 Type 2 diabetes mellitus with other skin ulcer; L97.822 Non-pressure chronic ulcer of other part of left lower leg with fat layer exposed; L97.811 Non-pressure chronic ulcer of other part of right lower leg limited to breakdown of skin | CPT/HCPCS: 97597; 97598; 99213; A6252 ==

== ENCOUNTER → 2022-06-27 13:06 | Outpatient (BNVA) | payer MEDICARE, MEDICAID, SELFPAY | PROVIDERS: PCP Clinical Nurse Specialist Adult Health; Visit Provider Thoracic Surgery (Cardiothoracic Vascular Surgery) | DX: I96 Gangrene, not elsewhere classified (principal); E11.621 Type 2 diabetes mellitus with foot ulcer; L97.522 Non-pressure chronic ulcer of other part of left foot with fat layer exposed; Z09 Encounter for follow-up examination after completed treatment for conditions other than malignant neoplasm | CPT/HCPCS: 97597 ==

== ENCOUNTER → 2022-07-04 14:49 | Outpatient (BNVA) | payer MEDICARE, MEDICAID, SELFPAY | PROVIDERS: PCP Clinical Nurse Specialist Adult Health; Visit Provider Thoracic Surgery (Cardiothoracic Vascular Surgery) | DX: I96 Gangrene, not elsewhere classified (principal); E11.621 Type 2 diabetes mellitus with foot ulcer; L97.522 Non-pressure chronic ulcer of other part of left foot with fat layer exposed | CPT/HCPCS: 99212; A6210 ==

== ENCOUNTER → 2022-07-11 14:07 | Outpatient (BNVA) | payer MEDICARE, MEDICAID, SELFPAY | PROVIDERS: PCP Clinical Nurse Specialist Adult Health; Visit Provider Thoracic Surgery (Cardiothoracic Vascular Surgery) | DX: I96 Gangrene, not elsewhere classified (principal); E11.621 Type 2 diabetes mellitus with foot ulcer; L97.522 Non-pressure chronic ulcer of other part of left foot with fat layer exposed | CPT/HCPCS: 97597 ==

== ENCOUNTER → 2022-07-18 11:42 | Outpatient (BNVA) | payer MEDICARE, MEDICAID, SELFPAY | PROVIDERS: PCP Clinical Nurse Specialist Adult Health; Visit Provider Thoracic Surgery (Cardiothoracic Vascular Surgery) | DX: Z09 Encounter for follow-up examination after completed treatment for conditions other than malignant neoplasm (principal); E11.610 Type 2 diabetes mellitus with diabetic neuropathic arthropathy; E11.621 Type 2 diabetes mellitus with foot ulcer; L97.511 Non-pressure chronic ulcer of other part of right foot limited to breakdown of skin; L97.512 Non-pressure chronic ulcer of other part of right foot with fat layer exposed; E11.8 Type 2 diabetes mellitus with unspecified complications; Z79.84 Long term (current) use of oral hypoglycemic drugs; B35.1 Tinea unguium; G62.9 Polyneuropathy, unspecified; I87.2 Venous insufficiency (chronic) (peripheral) | CPT/HCPCS: 80053; 83036; 85025; 99212; 99213; A6021 ==

== ENCOUNTER → 2022-07-25 09:45 | Outpatient (BNVA) | payer MEDICARE, MEDICAID, SELFPAY | PROVIDERS: PCP Clinical Nurse Specialist Adult Health; Visit Provider Thoracic Surgery (Cardiothoracic Vascular Surgery) | DX: S81.812A Laceration without foreign body, left lower leg, initial encounter (principal); S81.811A Laceration without foreign body, right lower leg, initial encounter; X58.XXXA Exposure to other specified factors, initial encounter; I96 Gangrene, not elsewhere classified | CPT/HCPCS: 97597; 97598 ==

== ENCOUNTER → 2022-07-27 08:14 | Outpatient (BNVA) | payer MEDICARE, MEDICAID, SELFPAY | PROVIDERS: PCP Clinical Nurse Specialist Adult Health; Visit Provider Thoracic Surgery (Cardiothoracic Vascular Surgery) | DX: I96 Gangrene, not elsewhere classified (principal); L97.822 Non-pressure chronic ulcer of other part of left lower leg with fat layer exposed; L97.812 Non-pressure chronic ulcer of other part of right lower leg with fat layer exposed | CPT/HCPCS: 29581 ==

== ENCOUNTER → 2022-08-01 09:51 | Outpatient (BNVA) | payer MEDICARE, MEDICAID, SELFPAY | PROVIDERS: PCP Clinical Nurse Specialist Adult Health; Visit Provider Thoracic Surgery (Cardiothoracic Vascular Surgery) | DX: S81.812A Laceration without foreign body, left lower leg, initial encounter (principal); X58.XXXA Exposure to other specified factors, initial encounter; Z09 Encounter for follow-up examination after completed treatment for conditions other than malignant neoplasm | CPT/HCPCS: 97597 ==

== ENCOUNTER → 2022-08-08 09:18 | Outpatient (BNVA) | payer MEDICARE, MEDICAID, SELFPAY | PROVIDERS: PCP Clinical Nurse Specialist Adult Health; Visit Provider Thoracic Surgery (Cardiothoracic Vascular Surgery) | DX: Z09 Encounter for follow-up examination after completed treatment for conditions other than malignant neoplasm (principal) | CPT/HCPCS: 99212 ==

== ENCOUNTER → 2022-08-15 08:05 | Outpatient (BNVA) | payer MEDICARE, MEDICAID, SELFPAY | PROVIDERS: PCP Clinical Nurse Specialist Adult Health; Visit Provider Podiatrist Foot & Ankle Surgery | DX: E11.21 Type 2 diabetes mellitus with diabetic nephropathy (principal); Z79.84 Long term (current) use of oral hypoglycemic drugs; E11.8 Type 2 diabetes mellitus with unspecified complications; B35.1 Tinea unguium; G62.9 Polyneuropathy, unspecified; I83.009 Varicose veins of unspecified lower extremity with ulcer of unspecified site | CPT/HCPCS: 11721 ==

== ENCOUNTER → 2022-08-31 07:54 | Outpatient (BNVA) | payer MEDICARE, MEDICAID, SELFPAY | PROVIDERS: PCP Clinical Nurse Specialist Adult Health; Visit Provider Thoracic Surgery (Cardiothoracic Vascular Surgery) | DX: I96 Gangrene, not elsewhere classified (principal); I87.2 Venous insufficiency (chronic) (peripheral); E11.622 Type 2 diabetes mellitus with other skin ulcer; L97.812 Non-pressure chronic ulcer of other part of right lower leg with fat layer exposed; L97.822 Non-pressure chronic ulcer of other part of left lower leg with fat layer exposed | CPT/HCPCS: 97597; 97598 ==

== ENCOUNTER → 2022-09-05 14:17 | Outpatient (BNVA) | payer MEDICARE, MEDICAID, SELFPAY | PROVIDERS: PCP Clinical Nurse Specialist Adult Health; Visit Provider Nurse Practitioner Family | DX: I96 Gangrene, not elsewhere classified (principal); E11.622 Type 2 diabetes mellitus with other skin ulcer; L97.812 Non-pressure chronic ulcer of other part of right lower leg with fat layer exposed; L97.822 Non-pressure chronic ulcer of other part of left lower leg with fat layer exposed; I87.2 Venous insufficiency (chronic) (peripheral) | CPT/HCPCS: 97597; 97598; A6252 ==

== ENCOUNTER → 2022-09-12 10:29 | Outpatient (BNVA) | payer MEDICARE, MEDICAID, SELFPAY | PROVIDERS: PCP Clinical Nurse Specialist Adult Health; Visit Provider Thoracic Surgery (Cardiothoracic Vascular Surgery) | DX: I87.2 Venous insufficiency (chronic) (peripheral) (principal); E11.621 Type 2 diabetes mellitus with foot ulcer; L97.822 Non-pressure chronic ulcer of other part of left lower leg with fat layer exposed; Z09 Encounter for follow-up examination after completed treatment for conditions other than malignant neoplasm | CPT/HCPCS: 97597 ==

== ENCOUNTER → 2022-09-19 09:49 | Outpatient (BNVA) | payer MEDICARE, MEDICAID, SELFPAY | PROVIDERS: PCP Clinical Nurse Specialist Adult Health; Visit Provider Thoracic Surgery (Cardiothoracic Vascular Surgery) | DX: Z09 Encounter for follow-up examination after completed treatment for conditions other than malignant neoplasm (principal) | CPT/HCPCS: 99212; A6210 ==

== ENCOUNTER → 2022-09-26 08:05 | Outpatient (BNVA) | payer MEDICARE, MEDICAID, SELFPAY | PROVIDERS: PCP Clinical Nurse Specialist Adult Health; Visit Provider Thoracic Surgery (Cardiothoracic Vascular Surgery) | DX: I96 Gangrene, not elsewhere classified (principal); E11.621 Type 2 diabetes mellitus with foot ulcer; L97.521 Non-pressure chronic ulcer of other part of left foot limited to breakdown of skin | CPT/HCPCS: 97597; A6212 ==

== ENCOUNTER → 2022-10-03 08:34 | Outpatient (BNVA) | payer MEDICARE, MEDICAID, SELFPAY | PROVIDERS: PCP Clinical Nurse Specialist Adult Health; Visit Provider Thoracic Surgery (Cardiothoracic Vascular Surgery) | DX: E11.622 Type 2 diabetes mellitus with other skin ulcer (principal); L97.812 Non-pressure chronic ulcer of other part of right lower leg with fat layer exposed; Z09 Encounter for follow-up examination after completed treatment for conditions other than malignant neoplasm | CPT/HCPCS: 97597 ==

== ENCOUNTER → 2022-10-10 08:24 | Outpatient (BNVA) | payer MEDICARE, MEDICAID, SELFPAY | PROVIDERS: PCP Clinical Nurse Specialist Adult Health; Visit Provider Thoracic Surgery (Cardiothoracic Vascular Surgery) | DX: E11.622 Type 2 diabetes mellitus with other skin ulcer (principal); L97.812 Non-pressure chronic ulcer of other part of right lower leg with fat layer exposed | CPT/HCPCS: 97597 ==

== ENCOUNTER → 2022-10-17 09:07 | Outpatient (BNVA) | payer MEDICARE, MEDICAID, SELFPAY | PROVIDERS: PCP Clinical Nurse Specialist Adult Health; Visit Provider Nurse Practitioner Family | DX: Z09 Encounter for follow-up examination after completed treatment for conditions other than malignant neoplasm (principal); E11.610 Type 2 diabetes mellitus with diabetic neuropathic arthropathy; I10 Essential (primary) hypertension | CPT/HCPCS: 80053; 80061; 82043; 83036; 85025; 99212 ==

== ENCOUNTER → 2022-10-24 07:48 | Outpatient (BNVA) | payer MEDICARE, MEDICAID, SELFPAY | PROVIDERS: PCP Clinical Nurse Specialist Adult Health; Visit Provider Podiatrist Foot & Ankle Surgery | DX: B35.1 Tinea unguium (principal); E11.610 Type 2 diabetes mellitus with diabetic neuropathic arthropathy; G62.9 Polyneuropathy, unspecified; E11.621 Type 2 diabetes mellitus with foot ulcer; L97.521 Non-pressure chronic ulcer of other part of left foot limited to breakdown of skin; Z79.84 Long term (current) use of oral hypoglycemic drugs | CPT/HCPCS: 11721; 11730 ==

== ENCOUNTER → 2022-10-31 07:55 | Outpatient (BNVA) | payer MEDICARE, MEDICAID, SELFPAY | PROVIDERS: PCP Clinical Nurse Specialist Adult Health; Visit Provider Podiatrist Foot & Ankle Surgery | DX: E11.621 Type 2 diabetes mellitus with foot ulcer (principal); L97.522 Non-pressure chronic ulcer of other part of left foot with fat layer exposed; E11.42 Type 2 diabetes mellitus with diabetic polyneuropathy; Z79.84 Long term (current) use of oral hypoglycemic drugs; E11.610 Type 2 diabetes mellitus with diabetic neuropathic arthropathy; G62.9 Polyneuropathy, unspecified | CPT/HCPCS: 99213 ==

== ENCOUNTER → 2022-11-14 09:37 | Outpatient (BNVA) | payer MEDICARE, MEDICAID, SELFPAY | PROVIDERS: PCP Clinical Nurse Specialist Adult Health; Visit Provider Podiatrist Foot & Ankle Surgery | DX: E11.610 Type 2 diabetes mellitus with diabetic neuropathic arthropathy (principal); G62.9 Polyneuropathy, unspecified; E11.621 Type 2 diabetes mellitus with foot ulcer; L97.522 Non-pressure chronic ulcer of other part of left foot with fat layer exposed | CPT/HCPCS: 99213 ==

== ENCOUNTER → 2022-12-26 07:59 | Outpatient (BNVA) | payer MEDICARE, MEDICAID, SELFPAY | PROVIDERS: PCP Clinical Nurse Specialist Adult Health; Visit Provider Podiatrist Foot & Ankle Surgery | DX: E11.621 Type 2 diabetes mellitus with foot ulcer (principal); L97.512 Non-pressure chronic ulcer of other part of right foot with fat layer exposed; E11.42 Type 2 diabetes mellitus with diabetic polyneuropathy; Z79.84 Long term (current) use of oral hypoglycemic drugs; E11.610 Type 2 diabetes mellitus with diabetic neuropathic arthropathy; G62.9 Polyneuropathy, unspecified | CPT/HCPCS: 11721; 99213 ==

== ENCOUNTER → 2022-12-28 08:56 | Outpatient (BNVA) | payer MEDICARE, MEDICAID, SELFPAY | PROVIDERS: PCP Clinical Nurse Specialist Adult Health; Visit Provider Thoracic Surgery (Cardiothoracic Vascular Surgery) | DX: E11.52 Type 2 diabetes mellitus with diabetic peripheral angiopathy with gangrene (principal); L89.892 Pressure ulcer of other site, stage 2 | CPT/HCPCS: 97597; 99213 ==

== ENCOUNTER → 2022-12-30 07:57 | Outpatient (BNVA) | payer MEDICARE, MEDICAID, SELFPAY | PROVIDERS: PCP Clinical Nurse Specialist Adult Health; Visit Provider Thoracic Surgery (Cardiothoracic Vascular Surgery) | DX: E11.52 Type 2 diabetes mellitus with diabetic peripheral angiopathy with gangrene (principal); L89.892 Pressure ulcer of other site, stage 2 | CPT/HCPCS: 29581; A6212 ==

== ENCOUNTER → 2023-01-06 07:56 | Outpatient (BNVA) | payer MEDICARE, MEDICAID, SELFPAY | PROVIDERS: PCP Clinical Nurse Specialist Adult Health; Visit Provider Thoracic Surgery (Cardiothoracic Vascular Surgery) | DX: Z09 Encounter for follow-up examination after completed treatment for conditions other than malignant neoplasm (principal) | CPT/HCPCS: 29581 ==

== ENCOUNTER → 2023-01-13 08:01 | Outpatient (BNVA) | payer MEDICARE, MEDICAID, SELFPAY | PROVIDERS: PCP Clinical Nurse Specialist Adult Health; Visit Provider Thoracic Surgery (Cardiothoracic Vascular Surgery) | DX: Z09 Encounter for follow-up examination after completed treatment for conditions other than malignant neoplasm (principal) | CPT/HCPCS: 99212 ==

== ENCOUNTER → 2023-01-17 08:15 | Outpatient (BNVA) | payer MEDICARE, MEDICAID, SELFPAY | PROVIDERS: PCP Clinical Nurse Specialist Adult Health; Visit Provider Clinical Nurse Specialist Adult Health | DX: E11.610 Type 2 diabetes mellitus with diabetic neuropathic arthropathy (principal) | CPT/HCPCS: 80053; 83036; 85025 ==

== ENCOUNTER 2023-01-26 08:16 | Outpatient (CLI) | payer MEDICARE, MEDICAID, SELFPAY ==
--- NOTE | 2023-01-26 08:33 | XR_ITS ---
WS: [id number] Lumbar spine, 3 views, 01/26/2023 Clinical Data: low back pain Comparison: Lumbar spine, 03/07/2006 Findings: No compression fractures or subluxation is seen. There is degenerative disc narrowing at L3-L4, L4-L5 and L5-S1. There is osteoarthritic spurring from L3-L5.. There is a slight levoscoliosis of the lumb ar spine. The transverse processes and SI joints are normal. Impression: 1. Multilevel degenerative disc narrowing L3-4 to L5-S1. 2. Osteoarthritis L1-L5. 3. Minimal levoscoliosis.
== END 2023-01-26 08:17 | disposition home or self-care (01) ==
PROVIDERS: PCP Clinical Nurse Specialist Adult Health; Visit Provider Clinical Nurse Specialist Adult Health
DX: M47.896 Other spondylosis, lumbar region (principal); M54.50 Low back pain, unspecified
CPT/HCPCS: 72100

== ENCOUNTER 2023-02-22 06:50 | Outpatient (CLI) | payer MEDICARE, MEDICAID, SELFPAY ==
--- NOTE | 2023-02-22 07:15 | MR_ITS ---
WS: [id number] MRI LUMBAR SPINE NONCONTRAST TECHNIQUE: Sagittal T1, T2 and STIR imaging. Axial T1 and T2 imaging. CLINICAL INFORMATION: back pain COMPARISON: CT lumbar 2005 FINDINGS: Mild lumbar curve. No acute compression. Disc space narrowing worse at L3-L4 and L4-L5. Slight marisa listhesis L3 on L4. Severe central canal stenosis L3-4. LEFT disc extrusion at this level migrates cr anially posterior to the L3 vertebral body LEFT paracentral protrusion L4-5 extending into the LEFT subarticular recess. L1-L2: Mild facet arthropathy. L2-L3: Mild annular bulging. Mild facet arthropathy. Spinal canal and foramen are patent. L3-L4: Severe central canal stenosis due to grade 1 anterolisthesis in combination with disc bulging and facet arthropathy ligamentum flavum hypertrophy. In addition, LEFT paracentral disc extrusion ext ending cranially posterior to the L3 vertebral body. Impingement on the LEFT subarticular recess. Dis c material measures 8.7 x 13.6 mm this extends into the proximal LEFT neural foramen. Mild LEFT great er than RIGHT foraminal narrowing. L4-L5: LEFT subarticular protrusion extending to the LEFT subarticular recess. Impingement traversing LEFT L5 nerve root. Mild central canal stenosis. Foramen are patent. Moderate facet arthropathy. L5-S1: Annular bulging with impingement on the LEFT greater than RIGHT S1 nerve roots. Mild facet art hropathy. Small bilateral foraminal protrusions with mild bilateral foraminal narrowing. Prominent an terior hypertrophic changes L5-S1. Visualized pelvic bony structures: Normal. Paravertebral soft tissues: Normal. Mild central canal stenosis C3-C6 on the planning management it specialist imaging. IMPRESSION: 1. Mild lumbar curve. No acute compression. 2. Severe central canal stenosis L3-4 due to disc bulge and facet arthropathy ligamentum flavum hype rtrophy. Grade 1 anterolisthesis. 3. In addition 8 x 13 mm disc extrusion posterior to the L3 vertebral body impinges the LEFT subarti cular recess. This extends above the L3-4 disc space 4. LEFT subarticular protrusion L4-5 impinges the LEFT subarticular recess and traversing LEFT L5 ne rve root with mild central canal stenosis. 5. Disc bulging L5-S1 impinges the traversing LEFT greater than RIGHT S1 nerve roots. 6. Moderate facet arthropathy L3-L5. 7. Small foraminal protrusions L3-4 with mild bilateral foraminal narrowing. 8. Prominent anterior hypertrophic changes L5-S1. 9. Degenerative endplate changes L3-4 and L5-S1. 10. Mild central canal stenosis on the cervical spine planning management it specialist imaging C3-C6
== END 2023-02-22 06:51 | disposition home or self-care (01) ==
LOC: RAD 06:50
PROVIDERS: PCP Clinical Nurse Specialist Adult Health; Visit Provider Clinical Nurse Specialist Adult Health
DX: M51.17 Intervertebral disc disorders with radiculopathy, lumbosacral region (principal); M51.36 Other intervertebral disc degeneration, lumbar region; M48.061 Spinal stenosis, lumbar region without neurogenic claudication; M47.816 Spondylosis without myelopathy or radiculopathy, lumbar region; M48.02 Spinal stenosis, cervical region
CPT/HCPCS: 72148

== ENCOUNTER → 2023-02-27 07:33 | Outpatient (BNVA) | payer MEDICARE, MEDICAID, SELFPAY | PROVIDERS: PCP Clinical Nurse Specialist Adult Health; Visit Provider Podiatrist Foot & Ankle Surgery | DX: B35.1 Tinea unguium (principal); E11.610 Type 2 diabetes mellitus with diabetic neuropathic arthropathy; G62.9 Polyneuropathy, unspecified; E11.42 Type 2 diabetes mellitus with diabetic polyneuropathy; E11.621 Type 2 diabetes mellitus with foot ulcer; L97.522 Non-pressure chronic ulcer of other part of left foot with fat layer exposed; I83.005 Varicose veins of unspecified lower extremity with ulcer other part of foot; Z79.84 Long term (current) use of oral hypoglycemic drugs | CPT/HCPCS: 11721; 99213 ==

== ENCOUNTER → 2023-03-23 08:13 | Outpatient (BNVA) | payer MEDICARE, MEDICAID, SELFPAY | PROVIDERS: PCP Clinical Nurse Specialist Adult Health; Referring Provider Clinical Nurse Specialist Adult Health; Visit Provider Orthopaedic Surgery | DX: M54.42 Lumbago with sciatica, left side (principal); M51.26 Other intervertebral disc displacement, lumbar region; M48.061 Spinal stenosis, lumbar region without neurogenic claudication | CPT/HCPCS: 99204 ==

== ENCOUNTER → 2023-03-27 12:55 | Outpatient (BNVA) | payer MEDICARE, MEDICAID, SELFPAY | PROVIDERS: PCP Clinical Nurse Specialist Adult Health; Visit Provider Clinical Nurse Specialist Adult Health | DX: R10.11 Right upper quadrant pain (principal); Z79.899 Other long term (current) drug therapy | CPT/HCPCS: 80053; 81000; 85025; 85651; 86140; 87086 ==

== ENCOUNTER 2023-03-28 05:55 | Outpatient (CLI) | payer MEDICARE, MEDICAID, SELFPAY ==
--- NOTE | 2023-03-28 06:30 | US_ITS ---
WS: [id number] RIGHT UPPER QUADRANT ULTRASOUND HISTORY: Right UQ/right flank pain COMPARISON: None available. Liver: 16.8 cm in length. Poorly visualized liver. There is marked attenuation throughout the liver. Coarse echotexture. Liver is top normal size. No mass or bile duct dilatation identified. Portal Vein: Normal hepatopetal flow with monophasic waveform. Gallbladder: Normally distended with mild gallbladder wall thickening up to 3.5 mm. No stones identif ied and no pericholecystic fluid. No Fischer sign. CBD: 0.3 cm Pancreas: Not visualized. Right kidney: 12.3 cm in length. Normal size and echogenicity. No hydronephrosis or mass. Aorta and IVC: Limited but no abnormality identified. No ascites. IMPRESSION: 1. Technically very difficult ultrasound of the RIGHT upper quadrant due to body habitus. Severe hepatic steatosis. Liver is poorly visualized in its entirety due to attenuation. No mass or b ile duct dilatation identified. 2. Mild gallbladder wall thickening without evidence for cholelithiasis and no Fischer's sign. Gallbla dder wall thickening may be on the basis of hepatocellular disease. 3. No ascites. 4. Pancreas not visualized.
== END 2023-03-28 05:56 | disposition home or self-care (01) ==
LOC: RAD 05:56
PROVIDERS: PCP Clinical Nurse Specialist Adult Health; Visit Provider Clinical Nurse Specialist Adult Health
DX: R10.11 Right upper quadrant pain (principal)
CPT/HCPCS: 76705

== ENCOUNTER → 2023-05-01 08:02 | Outpatient (BNVA) | payer MEDICARE, MEDICAID, SELFPAY | PROVIDERS: PCP Clinical Nurse Specialist Adult Health; Visit Provider Podiatrist Foot & Ankle Surgery | DX: B35.1 Tinea unguium (principal); G62.9 Polyneuropathy, unspecified; E11.42 Type 2 diabetes mellitus with diabetic polyneuropathy; E11.621 Type 2 diabetes mellitus with foot ulcer; L97.511 Non-pressure chronic ulcer of other part of right foot limited to breakdown of skin; I83.015 Varicose veins of right lower extremity with ulcer other part of foot; Z79.84 Long term (current) use of oral hypoglycemic drugs | CPT/HCPCS: 11721 ==

== ENCOUNTER 2023-05-06 13:45 | Emergency (ER) | payer MEDICARE, MEDICAID, SELFPAY ==
[2023-05-06] VITALS (9 sets, daily range): BP systolic 133–174; BP diastolic 92–103; PULSE 70–90; RESP 16–21; TEMP 36.8; O2SAT 94–98
--- NOTE | 2023-05-06 14:00 | CTR_ITS ---
PROCEDURE INFORMATION: Exam: CT Head Without Contrast Exam date and time: 05/06/2023 2:25 PM Age: 72 years old Clinical indication: Weakness, extremity; Bilateral TECHNIQUE: Imaging protocol: Computed tomography of the head without contrast. Radiation optimization: All CT scans at this facility use at least one of these dose optimization techniques: automated exposure control; mA and/or kV adjustment per patient size (includes targeted exams where dose is matched to clinical indication); or iterative reconstruction. REPORTING DATA: Count of CT and Cardiac NM exams in prior 12 months: This patient has received 0 known CTs and 0 known cardiac nuclear medicine studies in the 12 months prior to the current study. COMPARISON: No relevant prior studies available. RADIATION DOSE METRICS: Total DLP (mGy-cm): 1200.31 FINDINGS: Brain: Bilateral subacute subdural hematoma, each nearly isodense with the brain parenchyma. Each is similar in size, 2.2 cm in maximum thickness. Each is similar in location along the inner table of the frontal and temporal lobe hello Because of the symmetry there is no midline shift although there is attenuation of the sulci and the lateral ventricles in the suprasellar brain. Cerebral ventricles: No ventriculomegaly. Paranasal sinuses: Visualized sinuses are unremarkable. No fluid levels. Mastoid air cells: Visualized mastoid air cells are well aerated. Bones/joints: Unremarkable. No acute fracture. Soft tissues: Unremarkable. CT/CT head wo con* [id number] IMPRESSION: Large and symmetrical bilateral subacute subdural hematoma.
--- NOTE | 2023-05-06 14:00 | XRR_ITS ---
PROCEDURE INFORMATION: Exam: XR Chest Exam date and time: 05/06/2023 2:33 PM Age: 72 years old Clinical indication: Other: Weakness TECHNIQUE: Imaging protocol: Radiologic exam of the chest. Views: 1 view. COMPARISON: CR XR chest 2V* [id number] 01/30/2020 8:24 AM FINDINGS: Lungs: See Pleural spaces finding. Pleural spaces: Haziness at the lateral left lung base is probably mainly due to pleural fluid although a minimal infiltrate might exist. Heart/Mediastinum: Mild cardiomegaly accentuated by the AP. Bones/joints: Unremarkable. XR/XR chest 1V portable [id number] IMPRESSION: Mild opacity at the lateral left lung base
--- NOTE | 2023-05-06 14:05 | ECG_ITS ---
[facility] Test Date: 2023-05-06 Pat Name: Daren Fisher Department: Room: Gender: Male Icu Registered Nurse: : 1950 Requested By: Laya Larson Order Number: [id number] Vicente MD: Jay Medrano M.D. Measurements Intervals [place] Rate: 81 P: 0 TX: 0 QRS: 1 QRSD: 141 T: -14 QT: 393 QTc: 458 Interpretive Statements ATRIAL FIBRILLATION Right bundle branch block Compared to ECG 11/17/2019 04:26:16 No significant change Electronically Signed On 05-07-2023 13:49:28 FINANCIAL BUSINESS ANALYST by Jay Medrano M.D. [id number]
--- NOTE | 2023-05-06 14:07 | CTR_ITS ---
PROCEDURE INFORMATION: Exam: CT Lumbar Spine Without Contrast Exam date and time: 05/06/2023 2:28 PM Age: 72 years old Clinical indication: Weakness; Additional info: Rle weakness TECHNIQUE: Imaging protocol: Computed tomography of the lumbar spine without contrast. Radiation optimization: All CT scans at this facility use at least one of these dose optimization techniques: automated exposure control; mA and/or kV adjustment per patient size (includes targeted exams where dose is matched to clinical indication); or iterative reconstruction. REPORTING DATA: Count of CT and Cardiac NM exams in prior 12 months: This patient has received 0 known CTs and 0 known cardiac nuclear medicine studies in the 12 months prior to the current study. COMPARISON: MR lumbar spine wo con* [id number] 02/22/2023 7:45 AM RADIATION DOSE METRICS: Total DLP (mGy-cm): 1540.5 FINDINGS: Bones/joints: Marked degenerative changes with disc space narrowing, vacuum disc phenomenon, marginal spurring, endplate eburnation L3 through S1. No evidence of fracture. No lytic or sclerotic bone lesion. There is a prominent central and left-sided osteophyte extending into the spinal canal at L5-S1. Left-sided herniated or bulging disc impinging upon the lateral recess at L4-L5. Mild/moderate spinal stenosis at L3-L4. 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 Soft tissues: Unremarkable. CT/CT lumbar spine wo con* [id number] IMPRESSION: 1. Multilevel degenerative changes. 2. Possible disc herniation on the left at L4-L5.
[2023-05-06 14:18] LABS: Glucose Point of Care 109 mg/dL (70-110)
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
[2023-05-06 14:25] LABS: Basophils # 0.1 10^3/uL (0.0-0.1); Eosinophils # 0.1 10^3/uL (0.0-0.8); Eosinophils % 1.3 %; Hematocrit 36.5 % (37-53); Lymphocytes # 1.5 10^3/uL (0.8-4.8); Lymphocytes % 17.6 %; Mean Corpuscular HGB Conc 32.1 g/dL (30-55); Mean Corpuscular Hemoglobin 29.1 pg (27-33); Mean Corpuscular Volume 90.8 fl (82-101); Monocytes # 0.7 10^3/uL (0.2-0.9); Monocytes % 7.9 %; Neutrophils % 71.8 %; Nucleated Red Blood Cells % 0 %; Platelet Count 303 10^3/cmm (157-399); Red Blood Count 4.02 10^6/uL (3.85-5.65); Red Cell Distribution Width 14.6 % (12.1-15.1); White Blood Count 8.35 10^3/uL (3.29-11.43)
[2023-05-06 14:34] LABS: Add Urine Culture? No; Add Urine Microscopic? YES; Bacteria Urine TRACE /hpf; Bilirubin Urine Neg (Negative); Blood Urine Neg (Negative); Glucose Urine UA Norm (Normal); Ketones Urine 1+ (Negative); Leukocyte Esterase Urine Negative (Negative); Nitrate Urine Negative (Negative); Protein Urine 1+ (Negative); RBC Urine RARE /hpf (0-2); Squamous Epithelial Cell Urine 0-4 /hpf (0-5); Urine Appearance Clear (CLEAR); Urine Color Yellow (Yellow); Urobilinogen Urine Norm (Negative); pH Urine 6.5 (5-7)
[2023-05-06 14:48] LABS: Troponin(5th) Baseline 30 ng/L (0-15)
[2023-05-06 14:57] LABS: Alanine Aminotransferase 22 U/L (0-41); Albumin Level 3.8 g/dL (3.5-5.2); Alkaline Phosphatase 118 U/L (40-130); Aspartate Amino Transferase 24 U/L (0-40); Blood Urea Nitrogen 20 mg/dL (8-23); Calcium 9.7 mg/dL (8.5-10.5); Carbon Dioxide 27 mmol/L (22-29); Chloride 99 mmol/L (98-107); Globulin 3.6 g/dL (1.3-4.6); Glomerular Filtration Rate 66.2 mL/min (90-130); Glucose 94 mg/dL (65-115); NT Pro B Type Natriuretic Pept 634 pg/mL (0-125); Osmolality Calculated 292 mOsm/kg (285-295); Sodium 140 mmol/L (136-145); Total Bilirubin 0.3 mg/dL (0.15-1.2); Total Protein 7.4 g/dL (6.6-8.7)
[2023-05-06] MEDS: phytonadione (ADULT) 5 MG in sodium chloride 0.9% 50 ML 151.5 MG IV (15:34)
--- NOTE | 2023-05-06 16:05 | ECG_ITS ---
[facility] Test Date: 2023-05-06 Pat Name: Daren Fisher Department: Room: Gender: Male Machine Inspector: : 1950 Requested By: Laya Larson Order Number: [id number] Vicente MD: Jay Medrano M.D. Measurements Intervals [place] Rate: 79 P: 0 ME: 0 QRS: 8 QRSD: 146 T: -8 QT: 396 QTc: 455 Interpretive Statements ATRIAL FIBRILLATION RIGHT BUNDLE BRANCH BLOCK [120+ ms QRS DURATION, UPRIGHT V1, 40+ ms S IN I/aVL/V4/V5/V6] Compared to ECG 05/06/2023 14:10:08 No significant change Electronically Signed On 05-07-2023 13:55:53 PLATE HANGER by Jay Medrano M.D. [id number]
[2023-05-06 17:06] LABS: Troponin 5 2HR 28.41 ng/L (0-15)
[2023-05-06 17:11] LABS: Troponin 5 2HR Delta -1.59 ABS# (0-10)
[2023-05-06 21:17] LABS: Troponin 5 6HR 29.67 ng/L (0-15); Troponin 5 6HR Delta -0.33 ng/L (0-12)
[2023-05-07 00:35] VITALS: BP 115/84; PULSE 77; RESP 18; O2SAT 97
[2023-05-07] MEDS: hum prothrombin cplx(pcc)4fact 1,000 UNIT, hum prothrombin cplx(pcc)4fact 500 UNIT in e... 1 UNIT IV (01:39)
[2023-05-07 01:44] VITALS: BP 158/87; PULSE 80; RESP 18; O2SAT 96
== END 2023-05-07 01:46 | disposition short-term general hospital (02) ==
PROVIDERS: Emergency Provider Nurse Practitioner; PCP Clinical Nurse Specialist Adult Health
DX: S06.5XAA Traumatic subdural hemorrhage with loss of consciousness status unknown, initial encounter (principal); I48.91 Unspecified atrial fibrillation; I10 Essential (primary) hypertension; E11.610 Type 2 diabetes mellitus with diabetic neuropathic arthropathy; L40.9 Psoriasis, unspecified; R79.89 Other specified abnormal findings of blood chemistry; S22.49XA Multiple fractures of ribs, unspecified side, initial encounter for closed fracture; Z79.01 Long term (current) use of anticoagulants; R91.8 Other nonspecific abnormal finding of lung field; E78.5 Hyperlipidemia, unspecified
CPT/HCPCS: 36415; 36416; 70450; 71045; 72131; 80053; 81001; 82962; 83880; 84484; 85025; 85610; 93005; 93010; 96374; 96375; 99285; J3430; J7168

== ENCOUNTER → 2023-05-16 09:43 | Outpatient (BNVA) | payer MEDICARE, MEDICAID, SELFPAY | PROVIDERS: PCP Clinical Nurse Specialist Adult Health; Visit Provider Clinical Nurse Specialist Adult Health | DX: S06.5XAA Traumatic subdural hemorrhage with loss of consciousness status unknown, initial encounter (principal); G47.33 Obstructive sleep apnea (adult) (pediatric); X58.XXXA Exposure to other specified factors, initial encounter; Z79.899 Other long term (current) drug therapy | CPT/HCPCS: 80053; 85025 ==

== ENCOUNTER → 2023-06-07 12:59 | Outpatient (BNVA) | payer MEDICARE, MEDICAID, SELFPAY | PROVIDERS: PCP Clinical Nurse Specialist Adult Health; Visit Provider Nurse Practitioner Family | DX: E11.52 Type 2 diabetes mellitus with diabetic peripheral angiopathy with gangrene (principal); E11.621 Type 2 diabetes mellitus with foot ulcer; L97.521 Non-pressure chronic ulcer of other part of left foot limited to breakdown of skin; L97.511 Non-pressure chronic ulcer of other part of right foot limited to breakdown of skin; E11.622 Type 2 diabetes mellitus with other skin ulcer; L97.821 Non-pressure chronic ulcer of other part of left lower leg limited to breakdown of skin; L97.811 Non-pressure chronic ulcer of other part of right lower leg limited to breakdown of skin; I87.2 Venous insufficiency (chronic) (peripheral) | CPT/HCPCS: 97597; 97598; 99213; A6251; A6253 ==

== ENCOUNTER → 2023-06-09 12:52 | Outpatient (BNVA) | payer MEDICARE, MEDICAID, SELFPAY | PROVIDERS: PCP Clinical Nurse Specialist Adult Health; Visit Provider Nurse Practitioner Family | DX: I87.2 Venous insufficiency (chronic) (peripheral) (principal); L97.811 Non-pressure chronic ulcer of other part of right lower leg limited to breakdown of skin; L97.821 Non-pressure chronic ulcer of other part of left lower leg limited to breakdown of skin; E11.621 Type 2 diabetes mellitus with foot ulcer; L97.521 Non-pressure chronic ulcer of other part of left foot limited to breakdown of skin; L97.511 Non-pressure chronic ulcer of other part of right foot limited to breakdown of skin | CPT/HCPCS: 97597; 97598; A6253 ==

== ENCOUNTER → 2023-06-14 09:20 | Outpatient (BNVA) | payer MEDICARE, MEDICAID, SELFPAY | PROVIDERS: PCP Clinical Nurse Specialist Adult Health; Visit Provider Thoracic Surgery (Cardiothoracic Vascular Surgery) | DX: E11.52 Type 2 diabetes mellitus with diabetic peripheral angiopathy with gangrene (principal); E11.621 Type 2 diabetes mellitus with foot ulcer; L97.411 Non-pressure chronic ulcer of right heel and midfoot limited to breakdown of skin; I87.2 Venous insufficiency (chronic) (peripheral); L97.511 Non-pressure chronic ulcer of other part of right foot limited to breakdown of skin; L97.811 Non-pressure chronic ulcer of other part of right lower leg limited to breakdown of skin; L97.821 Non-pressure chronic ulcer of other part of left lower leg limited to breakdown of skin | CPT/HCPCS: 97597; 97598 ==

== ENCOUNTER → 2023-06-21 13:39 | Outpatient (BNVA) | payer MEDICARE, MEDICAID, SELFPAY | PROVIDERS: PCP Clinical Nurse Specialist Adult Health; Visit Provider Thoracic Surgery (Cardiothoracic Vascular Surgery) | DX: E11.52 Type 2 diabetes mellitus with diabetic peripheral angiopathy with gangrene (principal); E11.621 Type 2 diabetes mellitus with foot ulcer; L97.521 Non-pressure chronic ulcer of other part of left foot limited to breakdown of skin; L97.511 Non-pressure chronic ulcer of other part of right foot limited to breakdown of skin; I87.2 Venous insufficiency (chronic) (peripheral); E11.622 Type 2 diabetes mellitus with other skin ulcer; L97.821 Non-pressure chronic ulcer of other part of left lower leg limited to breakdown of skin; L97.811 Non-pressure chronic ulcer of other part of right lower leg limited to breakdown of skin | CPT/HCPCS: 97597 ==

== ENCOUNTER → 2023-06-26 09:44 | Outpatient (BNVA) | payer MEDICARE, MEDICAID, SELFPAY | PROVIDERS: PCP Clinical Nurse Specialist Adult Health; Visit Provider Thoracic Surgery (Cardiothoracic Vascular Surgery) | DX: E11.52 Type 2 diabetes mellitus with diabetic peripheral angiopathy with gangrene (principal); E11.621 Type 2 diabetes mellitus with foot ulcer; L97.421 Non-pressure chronic ulcer of left heel and midfoot limited to breakdown of skin; I87.2 Venous insufficiency (chronic) (peripheral); L97.811 Non-pressure chronic ulcer of other part of right lower leg limited to breakdown of skin | CPT/HCPCS: 97597 ==

== ENCOUNTER → 2023-07-10 08:03 | Outpatient (BNVA) | payer MEDICARE, MEDICAID, SELFPAY | PROVIDERS: PCP Clinical Nurse Specialist Adult Health; Visit Provider Thoracic Surgery (Cardiothoracic Vascular Surgery) | DX: Z09 Encounter for follow-up examination after completed treatment for conditions other than malignant neoplasm (principal); Z87.2 Personal history of diseases of the skin and subcutaneous tissue | CPT/HCPCS: 99212 ==

== ENCOUNTER → 2023-07-17 07:43 | Outpatient (BNVA) | payer MEDICARE, MEDICAID, SELFPAY | PROVIDERS: PCP Clinical Nurse Specialist Adult Health; Visit Provider Podiatrist Foot & Ankle Surgery | DX: E11.42 Type 2 diabetes mellitus with diabetic polyneuropathy; B35.1 Tinea unguium; E11.610 Type 2 diabetes mellitus with diabetic neuropathic arthropathy; G62.9 Polyneuropathy, unspecified; L97.501 Non-pressure chronic ulcer of other part of unspecified foot limited to breakdown of skin; I83.009 Varicose veins of unspecified lower extremity with ulcer of unspecified site; M21.372 Foot drop, left foot; Z79.84 Long term (current) use of oral hypoglycemic drugs | CPT/HCPCS: 11721; 99213 ==

== ENCOUNTER → 2023-07-18 07:50 | Outpatient (BNVA) | payer MEDICARE, MEDICAID, SELFPAY | PROVIDERS: PCP Clinical Nurse Specialist Adult Health; Visit Provider Thoracic Surgery (Cardiothoracic Vascular Surgery) | DX: R60.0 Localized edema (principal); Z09 Encounter for follow-up examination after completed treatment for conditions other than malignant neoplasm; Z87.2 Personal history of diseases of the skin and subcutaneous tissue; E11.610 Type 2 diabetes mellitus with diabetic neuropathic arthropathy; E78.2 Mixed hyperlipidemia; Z79.899 Other long term (current) drug therapy | CPT/HCPCS: 80053; 80061; 83036; 85025; 99212 ==

== ENCOUNTER 2023-07-28 10:44 | Outpatient (CLI) | payer MEDICARE, MEDICAID, SELFPAY ==
--- NOTE | 2023-07-28 10:58 | CT_ITS ---
WS: [id number] CT SINUSES TECHNIQUE: Noncontrast CT of the paranasal sinuses with coronal and sagittal reformatted images. CLINICAL INFORMATION: OTHER CHRONIC SINUSITIS COMPARISON: None. DLP: 480.[address] scans at [facility] use at least one of these dose optimization techniques: automated e xposure control; mA and/or kV adjustment per patient size (includes targeted exams where dose is matc hed to clinical indication); or iterative reconstruction. FINDINGS: RIGHT to LEFT nasal septal deviation measuring 7.1 mm. Moderate polypoid mucosal thickening in the LE FT maxillary sinus with opacification LEFT ostiomeatal unit. Circumferential mucosal thickening LEFT maxillary sinus measures 7 mm. Chronic appearing fracture deformity of the LEFT lamina papyracea. Chr onic complete opacification of the LEFT frontal sinus and LEFT frontoethmoidal recess. Chronic appear ing fracture of the LEFT frontal sinus and adjacent LEFT superomedial orbit. This is unchanged since the prior head CT. Chronic fracture deformities of the nasal bones and maxillary sinus. LEFT denise b ullosa. Mild narrowing of the RIGHT ostiomeatal unit. Sphenoid sinus well aerated. Mild mucosal thickening RIGHT sphenoid sinus ostia. Mastoid air cells ar e well aerated. Trace mucosal thickening LEFT mastoid tip. Normal posterior nasopharynx. Normal parap haryngeal fat. Partially visualized moderate parenchymal volume loss. Tiny residual extra-axial low-attenuation fro ntal subdural collections or postoperative dural thickening. This can be followed up with head CT. Pr eviously described large symmetric subdural hematomas have been evacuated. IMPRESSION: 1. Nasal septal deviation measuring 7.1 mm. 2. Prior evidence of chronic fracture deformities involving the bilateral nasal bones LEFT greater t wilson RIGHT with chronic fracture deformity of the LEFT lamina papyracea and superior medial orbit as w ell as the orbital floor. Chronic fracture deformities involving the LEFT maxillary sinus. Chronic sl ightly depressed orbital floor fracture. 3. Polyploid mucosal thickening LEFT maxillary sinus measuring 7 mm in transverse dimension with opa cification of the LEFT ostiomeatal unit. 4. Chronic complete opacification of the LEFT frontal sinus and frontoethmoidal recess. 5. RIGHT paranasal sinuses are well aerated with narrowing of the RIGHT ostiomeatal unit. 6. Previously described subdural collections have been evacuated. Tiny residual collections or posto perative dural thickening partially visualized overlying the frontal lobes. This can be followed up w ith head CT.
== END 2023-07-28 10:45 | disposition home or self-care (01) ==
LOC: RAD 10:45
PROVIDERS: PCP Clinical Nurse Specialist Adult Health; Visit Provider Specialist
DX: J32.8 Other chronic sinusitis (principal); J34.2 Deviated nasal septum; M95.0 Acquired deformity of nose
CPT/HCPCS: 70486

== ENCOUNTER → 2023-08-22 14:44 | Outpatient (BNVA) | payer MEDICARE, MEDICAID, SELFPAY | PROVIDERS: PCP Clinical Nurse Specialist Adult Health; Visit Provider Orthopaedic Surgery | DX: M54.9 Dorsalgia, unspecified (principal); M48.062 Spinal stenosis, lumbar region with neurogenic claudication | CPT/HCPCS: 72100; 99214 ==

== ENCOUNTER → 2023-09-19 08:03 | Outpatient (BNVA) | payer MEDICAID, SELFPAY | PROVIDERS: PCP Clinical Nurse Specialist Adult Health; Visit Provider Podiatrist Foot & Ankle Surgery | DX: B35.1 Tinea unguium (principal); E11.610 Type 2 diabetes mellitus with diabetic neuropathic arthropathy; G62.9 Polyneuropathy, unspecified; I83.009 Varicose veins of unspecified lower extremity with ulcer of unspecified site; E11.621 Type 2 diabetes mellitus with foot ulcer; L97.511 Non-pressure chronic ulcer of other part of right foot limited to breakdown of skin; M21.372 Foot drop, left foot; Z79.84 Long term (current) use of oral hypoglycemic drugs | CPT/HCPCS: 11721; 99213 ==

== ENCOUNTER → 2023-10-03 15:03 | Outpatient (BNVA) | payer MEDICARE, MEDICAID, SELFPAY | PROVIDERS: PCP Clinical Nurse Specialist Adult Health; Visit Provider Podiatrist Foot & Ankle Surgery | DX: B35.1 Tinea unguium (principal); E11.610 Type 2 diabetes mellitus with diabetic neuropathic arthropathy; G62.9 Polyneuropathy, unspecified; E11.621 Type 2 diabetes mellitus with foot ulcer; L97.511 Non-pressure chronic ulcer of other part of right foot limited to breakdown of skin; I83.005 Varicose veins of unspecified lower extremity with ulcer other part of foot; M21.371 Foot drop, right foot; Z79.84 Long term (current) use of oral hypoglycemic drugs | CPT/HCPCS: 99213 ==

== ENCOUNTER → 2023-10-18 13:10 | Outpatient (BNVA) | payer MEDICARE, MEDICAID, SELFPAY | PROVIDERS: PCP Clinical Nurse Specialist Adult Health; Visit Provider Clinical Nurse Specialist Adult Health | DX: E11.610 Type 2 diabetes mellitus with diabetic neuropathic arthropathy (principal) | CPT/HCPCS: 80053; 83036; 85025 ==

== ENCOUNTER → 2023-10-19 12:28 | Outpatient (BNVA) | payer MEDICARE, MEDICAID, SELFPAY | PROVIDERS: PCP Clinical Nurse Specialist Adult Health; Visit Provider Podiatrist Foot & Ankle Surgery | DX: M20.41 Other hammer toe(s) (acquired), right foot (principal); B35.1 Tinea unguium; E11.621 Type 2 diabetes mellitus with foot ulcer; L97.511 Non-pressure chronic ulcer of other part of right foot limited to breakdown of skin; E11.610 Type 2 diabetes mellitus with diabetic neuropathic arthropathy; G62.9 Polyneuropathy, unspecified; I83.018 Varicose veins of right lower extremity with ulcer other part of lower leg; I83.028 Varicose veins of left lower extremity with ulcer other part of lower leg; M21.379 Foot drop, unspecified foot; Z79.84 Long term (current) use of oral hypoglycemic drugs | CPT/HCPCS: 28010 ==

== ENCOUNTER → 2023-10-31 14:25 | Outpatient (BNVA) | payer MEDICARE, MEDICAID, SELFPAY | PROVIDERS: PCP Clinical Nurse Specialist Adult Health; Visit Provider Podiatrist Foot & Ankle Surgery | DX: M20.41 Other hammer toe(s) (acquired), right foot (principal); B35.1 Tinea unguium; E11.610 Type 2 diabetes mellitus with diabetic neuropathic arthropathy; G62.9 Polyneuropathy, unspecified; M21.379 Foot drop, unspecified foot; E11.621 Type 2 diabetes mellitus with foot ulcer; L97.511 Non-pressure chronic ulcer of other part of right foot limited to breakdown of skin; Z79.84 Long term (current) use of oral hypoglycemic drugs | CPT/HCPCS: 99024 ==

== ENCOUNTER → 2023-11-20 07:43 | Outpatient (BNVA) | payer MEDICARE, SELFPAY | PROVIDERS: PCP Clinical Nurse Specialist Adult Health; Visit Provider Podiatrist Foot & Ankle Surgery | DX: M20.41 Other hammer toe(s) (acquired), right foot; B35.1 Tinea unguium; G62.9 Polyneuropathy, unspecified; M21.379 Foot drop, unspecified foot; E11.621 Type 2 diabetes mellitus with foot ulcer; L97.521 Non-pressure chronic ulcer of other part of left foot limited to breakdown of skin; I83.891 Varicose veins of right lower extremity with other complications; Z79.84 Long term (current) use of oral hypoglycemic drugs; R23.8 Other skin changes | CPT/HCPCS: 10160; 11055; 11721 ==

== ENCOUNTER → 2023-11-30 08:15 | Outpatient (BNVA) | payer MEDICARE, SELFPAY | PROVIDERS: PCP Clinical Nurse Specialist Adult Health; Visit Provider Podiatrist Foot & Ankle Surgery | DX: M20.41 Other hammer toe(s) (acquired), right foot; B35.1 Tinea unguium; E11.610 Type 2 diabetes mellitus with diabetic neuropathic arthropathy; G62.9 Polyneuropathy, unspecified; I83.009 Varicose veins of unspecified lower extremity with ulcer of unspecified site; M21.379 Foot drop, unspecified foot; E11.621 Type 2 diabetes mellitus with foot ulcer; L97.522 Non-pressure chronic ulcer of other part of left foot with fat layer exposed; Z79.84 Long term (current) use of oral hypoglycemic drugs | CPT/HCPCS: 11042 ==

== ENCOUNTER → 2023-12-05 13:03 | Outpatient (BNVA) | payer MEDICARE, SELFPAY | PROVIDERS: PCP Clinical Nurse Specialist Adult Health; Visit Provider Thoracic Surgery (Cardiothoracic Vascular Surgery) | DX: L97.821 Non-pressure chronic ulcer of other part of left lower leg limited to breakdown of skin (principal); E11.52 Type 2 diabetes mellitus with diabetic peripheral angiopathy with gangrene; E11.621 Type 2 diabetes mellitus with foot ulcer; L97.522 Non-pressure chronic ulcer of other part of left foot with fat layer exposed | CPT/HCPCS: 11042; 87070; 87176; 87205; 97597; 97598; 99213 ==

== ENCOUNTER 2023-12-12 15:08 | Inpatient (IN) | payer MEDICARE, SELFPAY ==
[2023-12-12] VITALS (8 sets, daily range): BP systolic 126–165; BP diastolic 66–97; PULSE 70–80; RESP 12–18; TEMP 36.4–36.9; O2SAT 93–99; BMI 37.2
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
--- NOTE | 2023-12-12 16:01 | USCV_ITS ---
Daren Fisher Age: 73 Gender: M : 1950 Exam Date: 12/12/2023 20:34 Ordering Phys: Floresita Morelos MD Technologist: JULES Exam Location: [facility] [place] Indication: History of Atrial fibrillation s/p cardioversion. Please send report to Joaquin Hunt MD metal casket assembler in [place]. BP: 143 / 66 HR: 81 Rhythm: Atrial fibrillation Technical Quality: Adequate with [employer] MEASUREMENTS (Male / Female) Normal Values 2D ECHO LV Diastolic Diameter PLAX 4.8 cm 4.2 - 5.9 / 3.9 - 5.3 cm IVS Diastolic Thickness 1.6 cm 0.6 - 1.0 / 0.6 - 0.9 cm IVS Systolic Thickness 1.8 cm LVPW Diastolic Thickness 1.3 cm 0.6 - 1.0 / 0.6 - 0.9 cm LVPW Systolic Thickness 1.8 cm LVOT Diameter 1.9 cm LV Ejection Fraction 2D Teich 55.7 % LV Ejection Fraction MOD 2C 54.2 % LV Ejection Fraction 2C AL 51.2 % LA Diameter 4.7 cm Aorta at Sinotubular Diameter 3.0 cm IVC Diameter 2.4 cm M-MODE LA Ao Ratio MM 1.6 AV Cusp Separation MM 2.1 cm DOPPLER AV Peak Velocity 140.0 cm/s LVOT Peak Velocity 97.0 cm/s AV Area Cont Eq vti 2.8 cm squared AV Area Cont Eq pk 1.9 cm squared MV Peak Velocity 124.0 cm/s MV Area PHT 4.4 cm squared Mitral E to A Ratio 0.0 TR Peak Velocity 236.0 cm/s TR Peak Gradient 22.3 mmHg TV Peak E Velocity 57.0 cm/s Right Atrial Pressure 3.0 mmHg Pulmonary Artery Systolic Pressu 25.3 mmHg PV Peak Velocity 98.0 cm/s FINDINGS Left Ventricle Difficult imaging. Echo contrast utilized. Left ventricle appears to be normal in size and function. No obvious wall motion disturbances. Ejection fraction 65%. Rhythm is atrial fibrillation or irregularly irregular. Diastolic function not calculated due to the irregular rhythm Right Ventricle Normal right ventricular size and systolic function. Normal right ventricular systolic pressure. Right Atrium The right atrium is normal in size. Left Atrium Mildly increased left atrial size. Mitral Valve Structurally normal mitral valve. Trace mitral valve regurgitation. Aortic Valve Mild aortic valve calcification. Aortic valve sclerosis without stenosis. Trace aortic valve regurgitation. Tricuspid Valve Structurally normal tricuspid valve. Pulmonic Valve Pulmonic valve not well visualized. Pericardium Normal pericardium without effusion. Aorta Normal ascending aorta dimension. IVC The inferior vena cava appears normal. CONCLUSIONS Difficult imaging. Echo contrast utilized. Left ventricle appears to be normal in size and function. No obvious wall motion disturbances. Ejection fraction 65%. Rhythm is atrial fibrillation or irregularly irregular. Diastolic function not calculated due to the irregular rhythm. Mildly increased left atrial size. Structurally normal mitral valve. Trace mitral valve regurgitation. Mild aortic valve calcification. Aortic valve sclerosis without stenosis. Trace aortic valve regurgitation. There are no prior echocardiogram studies to compare. Dr. Twin Cosme MD (Electronically Signed) Final Date: 13 December 2023 18:49 S
--- NOTE | 2023-12-12 16:01 | USCV_ITS ---
Daren Fisher Age: 73 Gender: M : 1950 Exam Date: 12/12/2023 16:23 Ordering Phys: Floresita Morelos MD Technologist: CT Exam Location: [facility] – [place]_ Indication: swelling PROCEDURES: Bilaterally, the common femoral, superficial femoral, profunda femoral, popliteal, posterior tibial, greater saphenous veins, and the peroneal trunk were identified and interrogated in the standard fashion. These veins were found to be easily compressible with spontaneous blood flow. No evidence of insufficiency or thrombus noted. FINDINGS: normal us CONCLUSIONS No evidence of right lower extremity DVT. No evidence of left lower extremity DVT. Zaki Acevedo MD (Electronically Signed) Final Date: 12 December 2023 17:37 S
--- NOTE | 2023-12-12 16:02 | XRR_ITS ---
PROCEDURE INFORMATION: Exam: XR Left Foot Exam date and time: 12/12/2023 4:20 PM Age: 73 years old Clinical indication: Condition or disease; Other: Diabetic ulcer; Additional info: Diabetic ulcer probing to bone TECHNIQUE: Imaging protocol: Radiologic exam of the left foot. Views: 3 or more views. COMPARISON: No relevant prior studies available. FINDINGS: Bones/joints: Soft tissue ulceration of the lateral forefoot with underlying displaced intra-articular fracture of the proximal phalanx 5th toe. There is lucency of the fracture fragments concerning for osteomyelitis and possible pathologic fracture. Soft tissues: As above. XR/XR foot LT min 3V* [id number] IMPRESSION: 1. Displaced intra-articular fracture of the proximal phalanx 5th toe, which appears to be exposed. Lucency of the fracture fragments raises the question of osteomyelitis and pathologic fracture. Consider correlation with MRI for further detail.
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
[2023-12-12 17:06] LABS: Glucose Point of Care 234 mg/dL (70-110)
[2023-12-12 17:29] LABS: Basophils # 0.1 10^3/uL (0.0-0.1); Basophils % 0.6 %; Eosinophils # 0.2 10^3/uL (0.0-0.8); Eosinophils % 1.4 %; Hematocrit 37.2 % (37-53); Lymphocytes # 1.2 10^3/uL (0.8-4.8); Lymphocytes % 9.1 %; Mean Corpuscular HGB Conc 29.6 g/dL (30-55); Mean Corpuscular Hemoglobin 25.9 pg (27-33); Mean Corpuscular Volume 87.5 fl (82-101); Monocytes # 1.1 10^3/uL (0.2-0.9); Monocytes % 8.2 %; Neutrophils # 10.52 10^3/uL (1.8-7.7); Neutrophils % 80.2 %; Nucleated Red Blood Cells % 0 %; Platelet Count 482 10^3/cmm (157-399); Red Blood Count 4.25 10^6/uL (3.85-5.65); Red Cell Distribution Width 17.5 % (12.1-15.1); White Blood Count 13.13 10^3/uL (3.29-11.43)
[2023-12-12] MEDS: sodium chloride 0.9% 1,000 ML 30 ML (17:34)
--- NOTE | 2023-12-12 17:40 | P.HPUD_ITS ---
Surgery/Procedure H&P Update DATE OF PROCEDURE: December 12, 2023 DATE H&P PERFORMED: 12/12/23 H&P UPDATE INFORMATION: I have reviewed H&P completed within last 30 days, I have examined patient prior to procedure, No changes to prior documentation and H[place] is in [facility] [place] date indicated PLANNED PROCEDURE: Operation Date: 12/12/23 17:40 Proposed Procedures p partial 5th ray resection left foot(Left) - Felipe Parra DPM
[2023-12-12 17:44] LABS: Erythrocyte Sedimentation Rate 56 mm/hr (0-10)
[2023-12-12 17:56] LABS: Anion Gap 16.5 (5-19); Blood Urea Nitrogen 15 mg/dL (8-23); Calcium 9.1 mg/dL (8.5-10.5); Carbon Dioxide 27 mmol/L (22-29); Chloride 100 mmol/L (98-107); Creatinine Clr Calc Pharmacy 88.8086; Glucose 119 mg/dL (65-115); Osmolality Calculated 290 mOsm/kg (285-295); Potassium 4.5 mmol/L (3.5-5.1); Sodium 139 mmol/L (136-145)
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
[2023-12-12] MEDS: vancomycin 1,000 MG in sodium chloride 0.9% 250 ML 250 MG IV (18:12)
[2023-12-12] MEDS: BUPivacaine 0.5% INJ 30 mL INJECTION (18:35)
--- NOTE | 2023-12-12 19:12 | P.OP_ITS ---
Operative Report Date of procedure: December 12, 2023 Pre-op diagnosis: Left foot fifth metatarsal osteomyelitis Post-op diagnosis: Same Post-op findings: Degenerative changes of fifth metatarsal head and base proximal phalanx with pathological fracture. Remaining tissue appeared healthy and viable. Proximal margin of fifth metatarsal appeared healthy with no signs of infection Procedure done: Partial fifth ray resection left foot CPT 77215 Pathology: 1. Fifth digit left foot 2. Fifth metatarsal left foot with proximal margin Surgeon: Felipe Parra DPM Licensing And Registration Director: Elo MIDDLETON Estimated blood loss: 15 25 Complications: None Findings: See above Procedure: Patient is a 73-year-old male left foot that has a history of chronic ulceration with acute osteomyelitis of fifth metatarsal head. Extent of infection necessitates partial fifth ray resection left foot. A lengthy discussion regarding the procedure, including risks and complications has been had with the patient and is noted in the recent clinic note. Written and verbal consent have been obtained. All patient questions have been answered to the patient?s satisfaction. No written or verbal guarantees have been given or implied. The patient has been NPO since midnight. The history has been reviewed and the history and physical is current. The signed consent was confirmed and placed in the patient chart. Patient imaging has been reviewed and is consistent with the diagnosis. Under mild sedation, the patient was brought into the operating room and left on the gurney in the supine position. IV antibiotics were given by the anesthesia team as preoperative surgical prophylaxis. IV sedation was then performed by the anesthesiateam. A local field block was performed using 0.5% Marcaine plain. A pneumatic tourniquet was then placed about the left ankle. The operative extremity was then prepped and draped in the usual fashion. The tourniquet was then inflated to 250 mmHg. After inflation, the following procedure was then performed. Attention was directed to the lateral aspect of the left foot where a racquet style incision was made around the fifth digit and circumferentially around the lateral wound. Full-thickness incision was made using a #15 blade down to the level of the fifth metatarsal phalangeal joint. The fifth digit of the left foot was then disarticulated from the fifth metatarsal phalangeal joint passed from the operative field. There was noted to be degenerative changes throughout the base the proximal phalanx consistent with osteomyelitis. The head of the fifth metatarsal was then visualized and was noted to be carrasco and discolored consistent with osteomyelitis. Dissection was carried proximally along the fifth metatarsal shaft to the level of healthy viable bone. Sagittal bone saw was then used to resect the fifth metatarsal at this level. Fifth metatarsal head was dissected free from the operative field and sent as specimen. Remaining fifth metatarsal appeared healthy and viable. Devitalized tissue of the amputation site was removed using combination of rongeur and 15 blade. The site was then irrigated with copious amounts of sterile saline via pulse lavage. Remaining tissue appeared healthy. Attention was then directed to closure. Incision edges were reapproximated using 2-0 Prolene in trauma suture fashion as well as simple erupted fashion. Incision was dressed with Adaptic soaked in Betadine, Betadine soaked 4 x 4 gauze, dry 4 x 4 gauze, Kerlix, Felipe. Tourniquet was let down and good hyperemic response was noted to remaining digits of left foot. The patient tolerated the procedure and anesthesia well and without complication. The patient was transported from the operating room to the recovery room with vital signs stable and vascular status intact to all remaining digits of the left foot. The patient was given both written and verbal instructions to remain nonweightbearing to left foot except for transfers. To the operative extremity, to keep dressings/splint clean, dry and intact and to take pain medication as directed. The patient will follow-up in the outpatient setting at their scheduled appointment. The patient was discharged with my personal number and was instructed to call if any questions or issues should arise. They were discharged home once anesthesia criteria was met. Based on intraoperative findings I do not believe that IV antibiotic therapy is needed in the outpatient setting. Once cultures result, and patient is stabilized from a medical standpoint he will be able to discharge home on oral antibiotics.
[2023-12-12 20:26] LABS: Glucose Point of Care 94 mg/dL (70-110)
[2023-12-12] MEDS: piperacillin-tazobactam 3.375 GM in sodium chloride 0.9% (plus) 50 ML IV (20:33)
[2023-12-12] MEDS: hyDRALAzine 25 mg Tablet PO (21:54)
[2023-12-13] MEDS: piperacillin-tazobactam 3.375 GM in sodium chloride 0.9% (plus) 50 ML IV ×3 (03:29→19:24)
[2023-12-13] MEDS: heparin 5,000 unit/mL INJ 1 mL 5000 UNIT SUBCUT ×2 (03:29→15:58)
[2023-12-13 04:00] VITALS: BP 128/70; PULSE 92; RESP 19; TEMP 36.9; O2SAT 96
--- NOTE | 2023-12-13 04:24 | P.PN_ITS ---
Subjective 2 Subjective: Patient seen at bedside this morning. Resting comfortably. Status post partial fifth ray resection left foot. Date of surgery 12/12/2023. No overnight events. Cultures pending. Vitals/I&O/Wt Last Vital Signs Temp 98.5 F 12/13/23 04:00 Pulse 92 12/13/23 04:00 Resp 19 H 12/13/23 04:00 BP 128/70 12/13/23 04:00 Pulse Ox 96 12/13/23 04:00 O2 Del Method Room Air 12/12/23 19:22 O2 Flow Rate 6 12/12/23 19:14 12/12/23 12/12/23 12/13/23 14:59 22:59 06:59 Intake Total 550 / 550 520 / 1070 Output Total 715 / 715 475 / 1190 Balance -165 / -165 45 / -120 Weight last 48 hrs Weight 294 lb 6.4 oz Weight 290 lb Physical Exam 2 Narrative: BELOW IS A FOCUSED LOWER EXTREMITY EXAM GENERAL: A&O x 3 VASCULAR: DP/PT pulses palpable 2/4 with CFT intact, <3seconds to distal digits DERMATOLOGICAL: Surgical dressing intact to left lower extremity with no strikethrough noted MUSCULOSKELETAL: Status post partial fifth ray resection left foot. NEUROLOGICAL: Neurological sensation to the affected foot and ankle is present through L4-S1 dermatomes with no hyper/hypoesthesias, negative Tinel or Valleix's sign IMAGING: Three-view x-rays of left foot taken during inpatient admission today 12/12/2023 show pathological fracture through base of proximal phalanx with soft tissue defect consistent with ulceration. Degenerative changes and cystic formation in fifth metatarsal head consistent with osteomyelitis. No other fractures or dislocations noted. No subcutaneous emphysema noted. 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 -Labs and vitals reviewed -WBC 13.13 (12/11) -ESR 56 -CRP pending VSS -Cultures wound cultures from the OR pending -Abx Vanco/Zosyn -Diet: Okay for diet -Status post partial fifth ray resection left foot (12/12/2023). Amputation site was closed. See operative note for details. No further surgical intervention by podiatry during this admission -Pain Mgmt: Per primary team -Weight bearing: Weightbearing to left foot for transfers only in postop shoe -Dressings: Leave surgical dressing clean, dry, intact -Continue current Abx therapy until ID and Sensitivity results -Trend labs -Discharge plan: Patient will be okay to discharge home on oral antibiotics once appropriate recommendations have been made based off of culture and sensitivity. Patient will need help arranging transportation to follow-up appointment in the outpatient setting. I would like to see patient in the outpatient setting in my clinic on 12/20/2023 in the PM. Patient is to keep operative leg elevated as much as possible. Attestations 2 Medical Necessity Statement*: Ulceration to lateral aspect of left foot with osteomyelitis of fifth metatarsal phalangeal joint necessitating partial fifth ray resection and inpatient stay for IV antibiotic therapy. 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
[2023-12-13] MEDS: vancomycin 1,500 MG/300 ML PIGGYBACK 200 MG IV ×2 (05:59→17:16)
[2023-12-13 06:17] LABS: Basophils # 0.1 10^3/uL (0.0-0.1); Basophils % 0.6 %; Eosinophils # 0.2 10^3/uL (0.0-0.8); Eosinophils % 1.3 %; Lymphocytes # 1.2 10^3/uL (0.8-4.8); Lymphocytes % 9.9 %; Mean Corpuscular HGB Conc 29.4 g/dL (30-55); Mean Corpuscular Hemoglobin 25.6 pg (27-33); Mean Corpuscular Volume 87.2 fl (82-101); Monocytes % 8.7 %; Neutrophils # 9.11 10^3/uL (1.8-7.7); Neutrophils % 78.8 %; Nucleated Red Blood Cells % 0 %; Platelet Count 438 10^3/cmm (157-399); Red Cell Distribution Width 17.4 % (12.1-15.1); White Blood Count 11.57 10^3/uL (3.29-11.43)
[2023-12-13 06:23] LABS: Glucose Point of Care 160 mg/dL (70-110)
[2023-12-13 06:37] LABS: Anion Gap 16.1 (5-19); Blood Urea Nitrogen 15 mg/dL (8-23); C Reactive Protein 142.9 mg/L (0.0-4.9); Calcium 8.5 mg/dL (8.5-10.5); Carbon Dioxide 25 mmol/L (22-29); Chloride 102 mmol/L (98-107); Creatinine Clr Calc Pharmacy 89.5042; Glucose 133 mg/dL (65-115); Magnesium 1.9 mg/dL (1.7-2.3); Osmolality Calculated 291 mOsm/kg (285-295); Potassium 4.1 mmol/L (3.5-5.1); Sodium 139 mmol/L (136-145)
[2023-12-13] MEDS: perflutren protein-a microsphr 0.22 mg/mL SDV 3 mL IV (07:02)
[2023-12-13 08:00] VITALS: BP 149/82; PULSE 86; RESP 17; TEMP 37.1; O2SAT 93
--- NOTE | 2023-12-13 09:40 | P.PN_ITS ---
Subjective 2 Subjective: Status post amputation of left fifth toe Patient complaining of back pain Appreciate podiatry recommendations Venous Doppler did not show DVT Vitals/I&O/Wt Last Vital Signs Temp 98.7 F 12/13/23 08:00 Pulse 86 12/13/23 08:00 Resp 17 12/13/23 08:00 BP 149/82 12/13/23 08:00 Pulse Ox 93 12/13/23 08:00 O2 Del Method Room Air 12/13/23 08:00 O2 Flow Rate 6 12/12/23 19:14 12/12/23 12/13/23 12/13/23 22:59 06:59 14:59 Intake Total 550 / 550 520 / 1070 350 / 350 Output Total 715 / 715 825 / 1540 Balance -165 / -165 -305 / -470 350 / 350 Weight last 48 hrs Weight 133.538 kg Weight 131.542 kg Physical Exam 2 Narrative: Patient is morbid obese Unkept appearance GCS 15 Nonfocal neuroexam Complaining of back pain Able to move extremities Left foot covered with dressing Venous stasis dermatitis Cellulitis of lower extremities noted Data 12/13/23 05:37 12/13/23 05:37 A&P Assessment and plan (1) Atrial fibrillation: (2) Essential hypertension: (3) Hyperlipidemia: Qualifiers: Hyperlipidemia type: mixed hyperlipidemia Qualified Code(s): E78.2 - Mixed hyperlipidemia (4) 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: (5) Diabetic foot ulcer: (6) Osteomyelitis: (7) Acute osteomyelitis: (8) Rheumatoid arthritis: (9) Gout: (10) Lumbar stenosis with neurogenic claudication: (11) Degenerative disc disease, lumbar: (12) FREEMAN (obstructive sleep apnea): (13) Psoriasis: Plan Postop day 1 Status post amputation of left fifth toe 12/11, Diabetic foot ulcer leading to osteomyelitis Partial fifth ray resection left foot No sign DVT Has venous's dermatitis with cellulitis Continue to biotics Patient will need help with transportation for follow-up with podiatry Most likely patient will be discharged in next 24 to 48 hours No pain in his extremities complaining of back pain which is old and chronic Patient is on opioids, add bowel regimen 9 consistent carb diet with Hemoglobin A1c is 8.2 Patient takes oral antihyperglycemic agents at home In the hospital we will use insulin with sliding scale Plan to discharge on oral antibiotics No need of IV fluids, continue antibiotics Patient tolerating diet Monitor inflammatory markers Attestations 2 Medical Necessity Statement*: Be discharged once we have final culture sensitivity report Diagnoses Atrial fibrillation I48.91 Essential hypertension I10 Mixed hyperlipidemia E78.2 Hyperlipidemia type: mixed hyperlipidemia 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
[2023-12-13] MEDS: FUROsemide 40 mg Tablet PO (10:44)
[2023-12-13] MEDS: allopurinol 300 mg Tablet PO (10:44)
[2023-12-13] MEDS: metoprolol tartrate 50 mg Tablet 100 MG PO ×2 (10:44→17:15)
[2023-12-13] MEDS: atorvastatin 40 mg Tablet PO (10:44)
[2023-12-13] MEDS: hyDRALAzine 25 mg Tablet PO ×3 (10:45→20:46)
[2023-12-13] MEDS: insulin lispro 100 unit/1 mL SUBCUT ×3 (10:45→17:15)
[2023-12-13] MEDS: losartan 50 mg Tablet 100 MG PO (10:47)
[2023-12-13 11:19] LABS: Glucose Point of Care 195 mg/dL (70-110)
[2023-12-13 11:54] VITALS: BP 144/80; PULSE 82; RESP 16; TEMP 36.4; O2SAT 97
[2023-12-13] MEDS: TRAMadol 50 mg Tablet PO (13:18)
[2023-12-13] MEDS: ondansetron 2 mg/ML SDV 2 mL 4 MG IVP (13:18)
[2023-12-13 16:00] VITALS: BP 128/78; PULSE 79; RESP 15; TEMP 36.4; O2SAT 96
[2023-12-13 16:46] LABS: Glucose Point of Care 205 mg/dL (70-110)
[2023-12-13] MEDS: acetaminophen 500 mg Tablet PO (19:23)
[2023-12-13 20:00] VITALS: BP 113/65; PULSE 63; RESP 17; TEMP 36.8; O2SAT 94
[2023-12-13 21:16] LABS: Glucose Point of Care 141 mg/dL (70-110)
[2023-12-14] VITALS (10 sets, daily range): BP systolic 118–131; BP diastolic 71–79; PULSE 63–85; RESP 14–19; TEMP 36.4–36.9; O2SAT 94–96
[2023-12-14] MEDS: piperacillin-tazobactam 3.375 GM in sodium chloride 0.9% (plus) 50 ML IV ×3 (03:19→19:17)
[2023-12-14] MEDS: heparin 5,000 unit/mL INJ 1 mL 5000 UNIT SUBCUT ×2 (03:19→16:02)
[2023-12-14] MEDS: TRAMadol 50 mg Tablet PO ×2 (04:34→16:09)
[2023-12-14 05:18] LABS: Basophils # 0.1 10^3/uL (0.0-0.1); Basophils % 0.7 %; Eosinophils # 0.3 10^3/uL (0.0-0.8); Eosinophils % 2.3 %; Hematocrit 32.4 % (37-53); Lymphocytes % 16.7 %; Mean Corpuscular HGB Conc 29.3 g/dL (30-55); Mean Corpuscular Hemoglobin 25.5 pg (27-33); Mean Corpuscular Volume 87.1 fl (82-101); Mean Platelet Volume 9.1 fL (7.4-10.4); Monocytes % 8.3 %; Neutrophils # 8.35 10^3/uL (1.8-7.7); Neutrophils % 71.4 %; Nucleated Red Blood Cells % 0 %; Platelet Count 392 10^3/cmm (157-399); Red Blood Count 3.72 10^6/uL (3.85-5.65); Red Cell Distribution Width 17.3 % (12.1-15.1); White Blood Count 11.69 10^3/uL (3.29-11.43)
[2023-12-14] MEDS: vancomycin 1,500 MG/300 ML PIGGYBACK 200 MG IV ×2 (05:28→17:35)
[2023-12-14 05:42] LABS: Anion Gap 15.2 (5-19); Blood Urea Nitrogen 16 mg/dL (8-23); Calcium 8.3 mg/dL (8.5-10.5); Carbon Dioxide 27 mmol/L (22-29); Chloride 101 mmol/L (98-107); Creatinine Clr Calc Pharmacy 82.0455; Glucose 151 mg/dL (65-115); Osmolality Calculated 292 mOsm/kg (285-295); Potassium 4.2 mmol/L (3.5-5.1); Sodium 139 mmol/L (136-145)
[2023-12-14 06:33] LABS: Glucose Point of Care 134 mg/dL (70-110)
[2023-12-14] MEDS: allopurinol 300 mg Tablet PO (08:45)
[2023-12-14] MEDS: hyDRALAzine 25 mg Tablet PO ×3 (08:45→20:26)
[2023-12-14] MEDS: FUROsemide 40 mg Tablet PO (08:45)
[2023-12-14] MEDS: metoprolol tartrate 50 mg Tablet 100 MG PO ×2 (08:45→17:32)
[2023-12-14] MEDS: losartan 50 mg Tablet 100 MG PO (08:45)
[2023-12-14] MEDS: atorvastatin 40 mg Tablet PO (08:45)
--- NOTE | 2023-12-14 10:03 | P.PN_ITS ---
Subjective 2 Subjective: Patient is doing well Had a BM as well Plan to discharge him on Monday Preliminary report reviewed Culture showing gram-negative ginna Anaerobic cultures negative so far Vitals/I&O/Wt Last Vital Signs Temp 97.6 F 12/14/23 07:28 Pulse 85 12/14/23 09:31 Resp 18 12/14/23 09:31 BP 131/75 12/14/23 07:28 Pulse Ox 96 12/14/23 09:31 O2 Del Method Room Air 12/14/23 09:31 O2 Flow Rate 6 12/12/23 19:14 12/13/23 12/14/23 12/14/23 22:59 06:59 14:59 Intake Total 640.000 / 4241.534 3374 / 2470.000 590 / 590 Output Total 1600 / 1600 650 / 2250 Balance -960.000 / -130.000 350 / 220.000 590 / 590 Weight last 48 hrs Weight 133.538 kg Weight 133.538 kg Weight 131.542 kg Physical Exam 2 Narrative: Patient is awake and alert Laying supine Currently on room air Hemodynamic stable Pleasant cooperative Left foot covered dressing. 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
[2023-12-14 11:34] LABS: Glucose Point of Care 143 mg/dL (70-110)
[2023-12-14] MEDS: insulin lispro 100 unit/1 mL SUBCUT ×2 (13:23→17:32)
[2023-12-14] MEDS: artificial tears Op Soln 15 mL Btl 1 DROP EYE-BOTH (16:10)
[2023-12-14 16:54] LABS: Glucose Point of Care 249 mg/dL (70-110)
[2023-12-14] MEDS: acetaminophen 500 mg Tablet PO (20:28)
[2023-12-14 20:55] LABS: Glucose Point of Care 119 mg/dL (70-110)
[2023-12-15] VITALS: BP 160/90; PULSE 72; RESP 18; TEMP 36.8; O2SAT 96
[2023-12-15] MEDS: heparin 5,000 unit/mL INJ 1 mL 5000 UNIT SUBCUT (03:04)
[2023-12-15] MEDS: piperacillin-tazobactam 3.375 GM in sodium chloride 0.9% (plus) 50 ML IV (03:04)
[2023-12-15 04:00] VITALS: BP 154/96; PULSE 68; RESP 18; TEMP 36.6; O2SAT 98
[2023-12-15 05:08] LABS: Basophils # 0.1 10^3/uL (0.0-0.1); Eosinophils # 0.4 10^3/uL (0.0-0.8); Eosinophils % 3.3 %; Hematocrit 34.1 % (37-53); Lymphocytes # 2.4 10^3/uL (0.8-4.8); Lymphocytes % 21.1 %; Mean Corpuscular HGB Conc 29.9 g/dL (30-55); Mean Corpuscular Hemoglobin 25.9 pg (27-33); Mean Corpuscular Volume 86.5 fl (82-101); Mean Platelet Volume 9.3 fL (7.4-10.4); Neutrophils # 7.36 10^3/uL (1.8-7.7); Neutrophils % 65.1 %; Nucleated Red Blood Cells % 0 %; Platelet Count 429 10^3/cmm (157-399); Red Blood Count 3.94 10^6/uL (3.85-5.65); Red Cell Distribution Width 17.3 % (12.1-15.1); White Blood Count 11.31 10^3/uL (3.29-11.43)
[2023-12-15 05:28] LABS: Blood Urea Nitrogen 18 mg/dL (8-23); Calcium 8.6 mg/dL (8.5-10.5); Carbon Dioxide 28 mmol/L (22-29); Chloride 102 mmol/L (98-107); Creatinine Clr Calc Pharmacy 75.7343; Glucose 102 mg/dL (65-115); Osmolality Calculated 294 mOsm/kg (285-295); Sodium 141 mmol/L (136-145)
[2023-12-15 05:47] LABS: Anion Gap 15.3 (5-19); Potassium 4.3 mmol/L (3.5-5.1)
[2023-12-15] MEDS: vancomycin 1,500 MG/300 ML PIGGYBACK 200 MG IV (06:28)
[2023-12-15 06:32] LABS: Glucose Point of Care 88 mg/dL (70-110)
[2023-12-15 07:53] VITALS: PULSE 68; RESP 18; O2SAT 98
[2023-12-15] MEDS: TRAMadol 50 mg Tablet PO (07:58)
[2023-12-15] MEDS: acetaminophen 500 mg Tablet PO (07:58)
[2023-12-15 07:59] VITALS: BP 154/96
[2023-12-15] MEDS: metoprolol tartrate 50 mg Tablet 100 MG PO (07:59)
[2023-12-15] MEDS: allopurinol 300 mg Tablet PO (07:59)
[2023-12-15] MEDS: losartan 50 mg Tablet 100 MG PO (07:59)
[2023-12-15] MEDS: atorvastatin 40 mg Tablet PO (07:59)
[2023-12-15] MEDS: hyDRALAzine 25 mg Tablet PO (07:59)
[2023-12-15] MEDS: FUROsemide 40 mg Tablet PO (07:59)
[2023-12-15 08:00] VITALS: BP 160/75; PULSE 92; RESP 14; TEMP 36.7; O2SAT 95
--- NOTE | 2023-12-15 09:09 | PM.DCS ---
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 resmed autoCPAP @ Epap min 11 cwp and EPap max 13 CWP with heated humidifier, (8) Psoriasis: Status: Acute Reason for Visit Reason for Visit: Diabetic foot ulcer Hospital Course Hospital Course 73-year-old male with history of type 2 diabetes uncontrolled with history of ulceration of left fifth, patient was seen at wound care clinic 12/[address] Gotti, I was contacted for direct admit, Dr. Love was consulted, patient was diagnosed with osteomyelitis with chronic ulceration of left fifth metatarsal head with underlying acute osteomyelitis with pathological fracture base of proximal phalanx of fifth digit, patient went for amputation same day of fifth digit with fifth metatarsal proximal margins, wound was closed patient was kept on IV antibiotics till 12/14, patient remained afebrile, leukocytosis improved to normal please note 12/05/2023 cultures showing polymicrobial infection with Enterococcus faecalis Klebsiella and procidentia he was getting oral antibiotics at home, culture from 12/11 is showing gram-negative rods I will choose linezolid and levofloxacin 10-14-day regimen Patient has wound care clinic appointment on Monday and willing to see Dr. Rosario on . Physical Exam Narrative: Awake and alert Close cellulitis improving Venous stasis dermatitis Foot covered with dressing No active drainage/purulence noted Dressing is dry Discharge Data Studies Completed and Pending Completed Studies During Hospitalization Category Date Time Status XR foot LT min 3V* [id number] Routine Exams 12/12/23 16:02 [place] [id number] Routine Ultrasound 12/12/23 16:01 Completed CV. echo wo/w contrast [id number] Routine Ultrasound 12/12/23 16:01 Completed Pending at discharge Category Date Time Status Anaerobic Culture Routine Lab 12/12/23 18:40 Results Wound Culture and Gram Stain Routine Lab 12/12/23 18:40 Results Pathology: Surgical [PTH] Routine Pth 12/12/23 19:00 Received Radiology Impressions Foot X-Ray 12/12/23 16:02 IMPRESSION: 1. Displaced intra-articular fracture of the proximal phalanx 5th toe, which appears to be exposed. Lucency of the fracture fragments raises the question of osteomyelitis and pathologic fracture. Consider correlation with MRI for further detail. Laboratory Results WBC 11.31 10^3/uL (3.29-11.43) 12/15/23 04:15 RBC 3.94 10^6/uL (3.85-5.65) 12/15/23 04:15 Hgb 10.20 g/dL (11.27-16.99) L 12/15/23 04:15 Hct 34.1 % (37-53) L 12/15/23 04:15 MCV 86.5 fl (82-101) 12/15/23 04:15 MCH 25.9 pg (27-33) L 12/15/23 04:15 MCHC 29.9 g/dL (30-55) L 12/15/23 04:15 RDW 17.3 % (12.1-15.1) H 12/15/23 04:15 Plt Count 429 10^3/cmm (157-399) H 12/15/23 04:15 MPV 9.3 fL (7.4-10.4) 12/15/23 04:15 Neut % (Auto) 65.1 % 12/15/23 04:15 Lymph % (Auto) 21.1 % 12/15/23 04:15 Bertie % (Auto) 9.0 % 12/15/23 04:15 Eos % (Auto) 3.3 % 12/15/23 04:15 Baso % (Auto) 1.0 % 12/15/23 04:15 Neut # (Auto) 7.36 10^3/uL (1.8-7.7) 12/15/23 04:15 Lymph # (Auto) 2.4 10^3/uL (0.8-4.8) 12/15/23 04:15 Bertie # (Auto) 1.0 10^3/uL (0.2-0.9) H 12/15/23 04:15 Eos # (Auto) 0.4 10^3/uL (0.0-0.8) 12/15/23 04:15 Baso # (Auto) 0.1 10^3/uL (0.0-0.1) 12/15/23 04:15 Nucleated RBC % (auto) 0 % 12/15/23 04:15 Nucleated RBCs # 0.0 /100WBC 12/15/23 04:15 ESR 56 mm/hr (0-10) H 12/12/23 17:01 Sodium 141 mmol/L (136-145) 12/15/23 04:15 Potassium 4.3 mmol/L (3.5-5.1) 12/15/23 04:15 Chloride 102 mmol/L (98-107) 12/15/23 04:15 Carbon Dioxide 28 mmol/L (22-29) 12/15/23 04:15 Anion Gap 15.3 (5-19) 12/15/23 04:15 BUN 18 mg/dL (8-23) 12/15/23 04:15 Creatinine 1.3 mg/dL (0.7-1.2) H 12/15/23 04:15 GFR Calculation Not Reportable 12/15/23 04:15 Glucose 102 mg/dL (65-115) 12/15/23 04:15 POC Glucose 88 mg/dL (70-110) 12/15/23 06:22 Calculated Osmolality 294 mOsm/kg (285-295) 12/15/23 04:15 Calcium 8.6 mg/dL (8.5-10.5) 12/15/23 04:15 Magnesium 1.9 mg/dL (1.7-2.3) 12/13/23 05:37 C-Reactive Protein 142.9 mg/L (0.0-4.9) H 12/13/23 05:37 Vancomycin Trough 16.0 ug/mL (10-15) H 12/14/23 17:13 Vitals Last Vital Signs Temp 98.0 F 12/15/23 08:00 Pulse 92 12/15/23 08:00 Resp 14 12/15/23 08:00 BP 160/75 12/15/23 08:00 Pulse Ox 95 12/15/23 08:00 O2 Del Method Room Air 12/15/23 08:00 O2 Flow Rate 6 12/12/23 19:14 Discharge Plan Discharge Patient Disposition: Home Condition: Stable Prescriptions: New levofloxacin 750 mg tablet 750 mg PO DAILY 10 Days Qty: 10 0RF hydralazine 25 mg Tablet 50 mg PO BID Qty: 60 4RF linezolid 600 mg tablet 600 mg PO BID 14 Days Qty: 28 0RF Continued glucosamine-chondroitin 900 mg tablet 900 mg PO DAILY mecobalamin (vitamin B12) 1,000 mcg tablet,chewable 2,500 mcg PO DAILY ascorbate calcium (vitamin C) 500 mg tablet 500 mg PO BID Metamucil 3.4 gram/5.4 gram powder 1 tbsp PO DAILY Rx Instructions: mix into at least 8 oz of water or juice before administering melatonin 10 mg capsule 10 mg PO BEDTIME calcium carbonate [Calcium 600] 600 mg calcium (1,500 mg) tablet 600 mg PO DAILY glimepiride 2 mg tablet 4 mg PO DAILY Qty: 270 3RF metoprolol tartrate 100 mg tablet 100 mg PO BID Qty: 60 11RF ondansetron 4 mg tablet,disintegrating 4 mg PO Q8H PRN (Reason: nausea and vomiting) Qty: 30 0RF (DME) blood-glucose meter Misc See Rx Instructions .MEDSUPPLY Qty: 1 0RF Rx Instructions: Use as directed for checking blood sugar (DME) Blood Glucose Test Strip See Rx Instructions .MEDSUPPLY Qty: 200 12RF Rx Instructions: Use as directed with glucometer to check blood sugar (DME) lancets Misc See Rx Instructions .MEDSUPPLY Qty: 200 12RF Rx Instructions: Use as directed to prick skin for blood sugar checks alcohol swabs Pads, Medicated 1 pad topical DIRECTED Qty: 200 12RF Rx Instructions: Use as directed to clean skin prior to finger stick or medication injection furosemide 40 mg tablet 80 mg PO BID Qty: 120 11RF potassium gluconate 595 mg (99 mg) tablet 595 mg PO DAILY Qty: 30 0RF (DME) OneTouch Ultra Test Strip See Rx Instructions .ROUTE .MEDSUPPLY Qty: 200 6RF Rx Instructions: As directed three times daily pantoprazole 40 mg tablet,delayed release (DR/EC) 40 mg PO DAILY Qty: 90 3RF atorvastatin 40 mg tablet 40 mg PO DAILY Qty: 30 11RF gabapentin 100 mg capsule 100 mg PO DAILY Qty: 30 11RF losartan 100 mg tablet 100 mg PO DAILY Qty: 30 11RF Ozempic 0.25 mg or 0.5 mg (2 mg/3 mL) pen injector 0.5 mg SUBCUT .weekly Qty: 9 3RF tramadol 50 mg tablet 50 mg PO BID PRN (Reason: pain) Qty: 60 2RF allopurinol 300 mg tablet 300 mg PO DAILY Qty: 30 11RF albuterol sulfate 90 mcg/actuation HFA aerosol inhaler 2 inh INHALATION Q6H PRN (Reason: Shortness Of Breath) Discontinued amoxicillin-pot clavulanate [Augmentin] 500-125 mg tablet 1 tab PO BID Qty: 14 0RF clonidine HCl 0.3 mg tablet 0.3 mg PO BEDTIME Discharge Orders: Discharge Order (Routine); Ordered 12/15/23 Ordered By: Floresita Morelos Referrals: Felipe Parra DPM [Physician] - 12/21/23 () Discharge Diet: Diabetic Discharge Activity: As per PT/OT instructions Patient Instructions: Acute Wound Care (DC), Opioid Safety, Post Anesthesia Care Activity Restrictions/Additional Instructions: For your blood pressure I have added hydralazine which you can take twice a day 50 mg Please keep operative leg elevated as much as possible Dressings: Leave surgical dressing clean, dry, intact Weight bearing: Weightbearing to left foot for transfers only in postop shoe Discharge Attestations Time Spent in Discharge Care*: greater than 30 min Quality Metrics Clinical Quality Measures [ No reported AMI, CVA or VTE this stay] Coding Level of Care Code Acute Code for Chg Fwd Diagnoses Essential hypertension I10 Atrial fibrillation I48.91 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
--- NOTE | 2023-12-15 09:45 | PC.CHAP ---
Pastoral Care Encounter/Spiritual Assessment Type of Contact [] Declined fitter tacker visit [] Patient/Family/Request visit [] Outpatient visit [] Follow-up visit [] Physician referral [] Code/Alert [x] Routine visit [] Staff referral [] Actively dying [] Patient sleeping [] Family support [] [] Out of room [] Palliative care [] [] Receiving care in room [] Pre-surgical visit [] Trauma [] Long length of stay [] ICU visit [] Other: Relational/Emotional Strength [x] Patient feels connected with others/family/visitors/staff [] Distress [] Loneliness/isolation [] Abandonment Spirituality of Patient [x] Person of Yanni [] Attends Orthodox of their [place] [x] Believes in Prayer [] Reads Bible or Druze materials [] There are Spiritual issues to be addressed Detective Bureau Chief Interventions [x] Prayer [x] Active listening [] Non-anxious presence [x] Spiritual/emotional support [] Crisis/trauma care [] Spiritual counseling [] Bereavement support [] Provided bereavement packet [] Provided Bible/devotional materials [] Provided toy/stuffed animal, coloring book to patient or family member [] Provided Communion [] Anointing/[place] [] Salvation [x] Completed spiritual assessment [] Other: Impact on Illness or Injury [] Angry [] Fearful [] Anxious [] Often cries [] Exhaustion [] Unable to work [] Unable to attend jainism [] Unable to walk/stand [] Unable to read [] Unable to drive [] Unable to eat/drink [] Unable to sleep [] Unable to be with family [] Patient intubated [] Other: Summary Time spent with patient 5 min
--- NOTE | 2023-12-15 10:01 | PC.SOCIAL ---
IMM Update pg 2 of IMM updated and reviewed w/ patient. Copy provided and copy dated, initialed and placed in chart.
[2023-12-15 11:35] LABS: Glucose Point of Care 131 mg/dL (70-110)
--- NOTE | 2023-12-15 11:54 | PC.NURSE ---
Discharge Note Patient discharged to home via private vehicle accompanied by friend. Discharge instructions reviewed with patient and/or automotive sales representative. Mobile pharmacy medications and/or prescriptions provided. Belongings/home medications returned.
[2023-12-15 11:56] VITALS: BP 160/75; PULSE 92; RESP 14; TEMP 36.7; O2SAT 95
== END 2023-12-15 12:05 | disposition home health service (06) | DRG 617 ==
PROVIDERS: Podiatrist Foot & Ankle Surgery; Admitting Provider Thoracic Surgery (Cardiothoracic Vascular Surgery); PCP Clinical Nurse Specialist Adult Health; Visit Provider Internal Medicine
PROC: 0Y6N0ZF Detachment at Left Foot, Partial 5th Ray, Open Approach (ICD-10-PCS; CPT 28810; principal; 2023-12-12 17:30)
DX: E11.69 Type 2 diabetes mellitus with other specified complication (principal); L03.116 Cellulitis of left lower limb; M84.478A Pathological fracture, left toe(s), initial encounter for fracture; M86.172 Other acute osteomyelitis, left ankle and foot; E11.621 Type 2 diabetes mellitus with foot ulcer; L97.529 Non-pressure chronic ulcer of other part of left foot with unspecified severity; Z79.4 Long term (current) use of insulin; E11.42 Type 2 diabetes mellitus with diabetic polyneuropathy; M10.9 Gout, unspecified; M21.372 Foot drop, left foot; M06.9 Rheumatoid arthritis, unspecified; L40.9 Psoriasis, unspecified; M51.36 Other intervertebral disc degeneration, lumbar region; M48.062 Spinal stenosis, lumbar region with neurogenic claudication; K76.0 Fatty (change of) liver, not elsewhere classified; I48.91 Unspecified atrial fibrillation; E11.22 Type 2 diabetes mellitus with diabetic chronic kidney disease; I12.9 Hypertensive chronic kidney disease with stage 1 through stage 4 chronic kidney disease, or unspecified chronic kidney disease; N18.30 Chronic kidney disease, stage 3 unspecified; G47.33 Obstructive sleep apnea (adult) (pediatric); E78.5 Hyperlipidemia, unspecified; I87.2 Venous insufficiency (chronic) (peripheral)
CPT/HCPCS: 11043; 36415; 36416; 73630; 80048; 80202; 82962; 83735; 85025; 85651; 86140; 87070; 87075; 87077; 87186; 87205; 88305; 88307; 88311; 93970; 94660; 96372; 97597; 97598; C8929; J1644; J1815; J2405; J2543; J2704; J3370; J3490; J7030; J7050; Q9956

== ENCOUNTER → 2023-12-19 10:45 | Outpatient (BNVA) | payer MEDICARE, SELFPAY | PROVIDERS: PCP Clinical Nurse Specialist Adult Health; Visit Provider Nurse Practitioner Family | DX: Z09 Encounter for follow-up examination after completed treatment for conditions other than malignant neoplasm (principal); Z87.2 Personal history of diseases of the skin and subcutaneous tissue | CPT/HCPCS: 99212 ==

== ENCOUNTER → 2023-12-21 13:19 | Outpatient (BNVA) | payer MEDICARE, SELFPAY | PROVIDERS: PCP Clinical Nurse Specialist Adult Health; Visit Provider Podiatrist Foot & Ankle Surgery | DX: Z89.432 Acquired absence of left foot; T87.81 Dehiscence of amputation stump; Y83.8 Other surgical procedures as the cause of abnormal reaction of the patient, or of later complication, without mention of misadventure at the time of the procedure; E11.22 Type 2 diabetes mellitus with diabetic chronic kidney disease; E11.610 Type 2 diabetes mellitus with diabetic neuropathic arthropathy; I83.009 Varicose veins of unspecified lower extremity with ulcer of unspecified site; L97.501 Non-pressure chronic ulcer of other part of unspecified foot limited to breakdown of skin; M06.9 Rheumatoid arthritis, unspecified; N18.30 Chronic kidney disease, stage 3 unspecified; S02.92XA Unspecified fracture of facial bones, initial encounter for closed fracture; V89.2XXA Person injured in unspecified motor-vehicle accident, traffic, initial encounter | CPT/HCPCS: 80053; 83036; 85025; 99024 ==

== ENCOUNTER → 2023-12-28 12:20 | Outpatient (BNVA) | payer MEDICARE, SELFPAY | PROVIDERS: PCP Clinical Nurse Specialist Adult Health; Visit Provider Podiatrist Foot & Ankle Surgery | DX: Z89.9 Acquired absence of limb, unspecified (principal); T87.81 Dehiscence of amputation stump; Y83.8 Other surgical procedures as the cause of abnormal reaction of the patient, or of later complication, without mention of misadventure at the time of the procedure | CPT/HCPCS: 11042 ==

== ENCOUNTER → 2024-01-02 07:57 | Outpatient (BNVA) | payer MEDICARE, SELFPAY | PROVIDERS: PCP Clinical Nurse Specialist Adult Health; Visit Provider Nurse Practitioner Family | DX: E11.52 Type 2 diabetes mellitus with diabetic peripheral angiopathy with gangrene (principal); E11.621 Type 2 diabetes mellitus with foot ulcer; L97.522 Non-pressure chronic ulcer of other part of left foot with fat layer exposed | CPT/HCPCS: 11042 ==

== ENCOUNTER → 2024-01-05 08:22 | Outpatient (BNVA) | payer MEDICARE, SELFPAY | PROVIDERS: PCP Clinical Nurse Specialist Adult Health; Visit Provider Thoracic Surgery (Cardiothoracic Vascular Surgery) | DX: E11.52 Type 2 diabetes mellitus with diabetic peripheral angiopathy with gangrene (principal); E11.621 Type 2 diabetes mellitus with foot ulcer; L97.522 Non-pressure chronic ulcer of other part of left foot with fat layer exposed | CPT/HCPCS: 99211 ==

== ENCOUNTER → 2024-01-10 13:46 | Outpatient (BNVA) | payer MEDICARE, SELFPAY | PROVIDERS: PCP Clinical Nurse Specialist Adult Health; Visit Provider Thoracic Surgery (Cardiothoracic Vascular Surgery) | DX: E11.52 Type 2 diabetes mellitus with diabetic peripheral angiopathy with gangrene (principal); E11.621 Type 2 diabetes mellitus with foot ulcer; L97.522 Non-pressure chronic ulcer of other part of left foot with fat layer exposed | CPT/HCPCS: 11042 ==

== ENCOUNTER → 2024-02-06 09:47 | Outpatient (BNVA) | payer MEDICARE, SELFPAY | PROVIDERS: PCP Clinical Nurse Specialist Adult Health; Visit Provider Podiatrist Foot & Ankle Surgery | DX: E11.8 Type 2 diabetes mellitus with unspecified complications (principal); Z89.432 Acquired absence of left foot | CPT/HCPCS: 99213 ==

== ENCOUNTER → 2024-02-19 14:46 | Outpatient (BNVA) | payer MEDICARE, SELFPAY | PROVIDERS: PCP Clinical Nurse Specialist Adult Health; Visit Provider Thoracic Surgery (Cardiothoracic Vascular Surgery) | DX: T87.81 Dehiscence of amputation stump (principal); Y83.8 Other surgical procedures as the cause of abnormal reaction of the patient, or of later complication, without mention of misadventure at the time of the procedure; Z89.422 Acquired absence of other left toe(s); E11.52 Type 2 diabetes mellitus with diabetic peripheral angiopathy with gangrene; E11.622 Type 2 diabetes mellitus with other skin ulcer; L97.821 Non-pressure chronic ulcer of other part of left lower leg limited to breakdown of skin | CPT/HCPCS: 97597; A6210 ==

== ENCOUNTER 2024-02-26 08:40 | Outpatient (CLI) | payer MEDICARE, SELFPAY ==
--- NOTE | 2024-02-26 08:49 | XR_ITS ---
WS: [id number] LEFT FOOT: 3 VIEW(S) TECHNIQUE: AP, oblique and lateral. HISTORY: E11.621 - Type 2 diabetes mellitus with foot ulcer COMPARISON: 12/12/2023 Status post prior amputation of the fifth toe and a large portion of the fifth metatarsal. At the amp utation site of the proximal fifth metatarsal there is loss of the normal bony cortex with destructio n and osteolysis highly suspicious for osteomyelitis. There is additional soft tissue edema along the lateral foot. Small calcaneal spur. XR/XR foot LT min 3V* [id number] IMPRESSION: 1. Prior amputation fifth toe. 2. Prior amputation of greater than 50% of the fifth metatarsal. 3. Destructive osseous process at the fifth metatarsal amputation site highly suspicious for osteomyelitis.
== END 2024-02-26 08:41 | disposition home or self-care (01) ==
PROVIDERS: PCP Clinical Nurse Specialist Adult Health; Visit Provider Thoracic Surgery (Cardiothoracic Vascular Surgery)
DX: E11.621 Type 2 diabetes mellitus with foot ulcer (principal); L97.509 Non-pressure chronic ulcer of other part of unspecified foot with unspecified severity; M89.572 Osteolysis, left ankle and foot; Z89.422 Acquired absence of other left toe(s); T87.81 Dehiscence of amputation stump; Y83.8 Other surgical procedures as the cause of abnormal reaction of the patient, or of later complication, without mention of misadventure at the time of the procedure; Z09 Encounter for follow-up examination after completed treatment for conditions other than malignant neoplasm
CPT/HCPCS: 73630; 97597

== ENCOUNTER → 2024-03-04 13:11 | Outpatient (BNVA) | payer MEDICARE, MEDICAID, SELFPAY | PROVIDERS: PCP Clinical Nurse Specialist Adult Health; Visit Provider Thoracic Surgery (Cardiothoracic Vascular Surgery) | DX: I96 Gangrene, not elsewhere classified (principal); T87.81 Dehiscence of amputation stump; Y83.8 Other surgical procedures as the cause of abnormal reaction of the patient, or of later complication, without mention of misadventure at the time of the procedure; Z89.422 Acquired absence of other left toe(s) | CPT/HCPCS: 97597 ==

== ENCOUNTER → 2024-03-12 13:57 | Outpatient (BNVA) | payer MEDICARE, MEDICAID, SELFPAY | PROVIDERS: PCP Clinical Nurse Specialist Adult Health; Visit Provider Podiatrist Foot & Ankle Surgery | DX: T81.31XS Disruption of external operation (surgical) wound, not elsewhere classified, sequela (principal); E11.610 Type 2 diabetes mellitus with diabetic neuropathic arthropathy; E11.22 Type 2 diabetes mellitus with diabetic chronic kidney disease; N18.30 Chronic kidney disease, stage 3 unspecified | CPT/HCPCS: 36415; 80053; 83036; 85025; 85651; 86140 ==

== ENCOUNTER → 2024-03-18 08:49 | Outpatient (BNVA) | payer MEDICARE, MEDICAID, SELFPAY | PROVIDERS: PCP Clinical Nurse Specialist Adult Health; Visit Provider Thoracic Surgery (Cardiothoracic Vascular Surgery) | DX: I96 Gangrene, not elsewhere classified (principal); T87.81 Dehiscence of amputation stump; Y83.8 Other surgical procedures as the cause of abnormal reaction of the patient, or of later complication, without mention of misadventure at the time of the procedure; Z89.422 Acquired absence of other left toe(s) | CPT/HCPCS: 97597 ==

== ENCOUNTER → 2024-03-25 08:21 | Outpatient (BNVA) | payer MEDICARE, MEDICAID, SELFPAY | PROVIDERS: PCP Clinical Nurse Specialist Adult Health; Visit Provider Thoracic Surgery (Cardiothoracic Vascular Surgery) | DX: E11.52 Type 2 diabetes mellitus with diabetic peripheral angiopathy with gangrene (principal); E11.621 Type 2 diabetes mellitus with foot ulcer; L97.521 Non-pressure chronic ulcer of other part of left foot limited to breakdown of skin; E11.622 Type 2 diabetes mellitus with other skin ulcer; L97.821 Non-pressure chronic ulcer of other part of left lower leg limited to breakdown of skin | CPT/HCPCS: 29581; 97597 ==

== ENCOUNTER → 2024-04-01 08:26 | Outpatient (BNVA) | payer MEDICARE, MEDICAID, SELFPAY | PROVIDERS: PCP Clinical Nurse Specialist Adult Health; Visit Provider Thoracic Surgery (Cardiothoracic Vascular Surgery) | DX: E11.52 Type 2 diabetes mellitus with diabetic peripheral angiopathy with gangrene (principal); E11.621 Type 2 diabetes mellitus with foot ulcer; L97.521 Non-pressure chronic ulcer of other part of left foot limited to breakdown of skin; E11.622 Type 2 diabetes mellitus with other skin ulcer; L97.811 Non-pressure chronic ulcer of other part of right lower leg limited to breakdown of skin; L97.821 Non-pressure chronic ulcer of other part of left lower leg limited to breakdown of skin | CPT/HCPCS: 29581; 97597; A6210 ==

== ENCOUNTER → 2024-04-08 09:37 | Outpatient (BNVA) | payer MEDICARE, MEDICAID, SELFPAY | PROVIDERS: PCP Clinical Nurse Specialist Adult Health; Visit Provider Thoracic Surgery (Cardiothoracic Vascular Surgery) | DX: I96 Gangrene, not elsewhere classified (principal); T87.81 Dehiscence of amputation stump; Y83.8 Other surgical procedures as the cause of abnormal reaction of the patient, or of later complication, without mention of misadventure at the time of the procedure; Z89.422 Acquired absence of other left toe(s); L97.811 Non-pressure chronic ulcer of other part of right lower leg limited to breakdown of skin; Z09 Encounter for follow-up examination after completed treatment for conditions other than malignant neoplasm | CPT/HCPCS: 97597; A6210 ==

== ENCOUNTER → 2024-04-15 08:50 | Outpatient (BNVA) | payer MEDICARE, MEDICAID, SELFPAY | PROVIDERS: PCP Family Medicine; Visit Provider Thoracic Surgery (Cardiothoracic Vascular Surgery) | DX: I96 Gangrene, not elsewhere classified (principal); T87.81 Dehiscence of amputation stump; Y83.8 Other surgical procedures as the cause of abnormal reaction of the patient, or of later complication, without mention of misadventure at the time of the procedure; Z89.422 Acquired absence of other left toe(s); L97.811 Non-pressure chronic ulcer of other part of right lower leg limited to breakdown of skin | CPT/HCPCS: 97597; A6210 ==

== ENCOUNTER → 2024-04-22 09:55 | Outpatient (BNVA) | payer MEDICARE, MEDICAID, SELFPAY | PROVIDERS: PCP Family Medicine; Visit Provider Thoracic Surgery (Cardiothoracic Vascular Surgery) | DX: T87.81 Dehiscence of amputation stump (principal); Y83.8 Other surgical procedures as the cause of abnormal reaction of the patient, or of later complication, without mention of misadventure at the time of the procedure; Z89.422 Acquired absence of other left toe(s); Z09 Encounter for follow-up examination after completed treatment for conditions other than malignant neoplasm | CPT/HCPCS: 97597; A6210 ==

== ENCOUNTER → 2024-05-02 12:58 | Outpatient (BNVA) | payer MEDICARE, MEDICAID, SELFPAY | PROVIDERS: PCP Family Medicine; Visit Provider Thoracic Surgery (Cardiothoracic Vascular Surgery) | DX: T87.81 Dehiscence of amputation stump (principal); Y83.8 Other surgical procedures as the cause of abnormal reaction of the patient, or of later complication, without mention of misadventure at the time of the procedure; Z89.422 Acquired absence of other left toe(s) | CPT/HCPCS: 97597 ==

== ENCOUNTER → 2024-05-16 12:51 | Outpatient (BNVA) | payer MEDICARE, MEDICAID, SELFPAY | PROVIDERS: PCP Family Medicine; Visit Provider Thoracic Surgery (Cardiothoracic Vascular Surgery) | DX: T87.81 Dehiscence of amputation stump (principal); Y83.8 Other surgical procedures as the cause of abnormal reaction of the patient, or of later complication, without mention of misadventure at the time of the procedure; Z89.422 Acquired absence of other left toe(s) | CPT/HCPCS: 97597 ==

== ENCOUNTER → 2024-05-23 13:00 | Outpatient (BNVA) | payer MEDICARE, MEDICAID, SELFPAY | PROVIDERS: PCP Family Medicine; Visit Provider Thoracic Surgery (Cardiothoracic Vascular Surgery) | DX: I96 Gangrene, not elsewhere classified (principal); T87.81 Dehiscence of amputation stump; Y83.8 Other surgical procedures as the cause of abnormal reaction of the patient, or of later complication, without mention of misadventure at the time of the procedure; Z89.422 Acquired absence of other left toe(s) | CPT/HCPCS: 11042 ==

== ENCOUNTER → 2024-05-24 12:52 | Outpatient (BNVA) | payer MEDICARE, MEDICAID, SELFPAY | PROVIDERS: PCP Family Medicine; Visit Provider Podiatrist Foot & Ankle Surgery | DX: B35.1 Tinea unguium (principal); E11.22 Type 2 diabetes mellitus with diabetic chronic kidney disease; N18.30 Chronic kidney disease, stage 3 unspecified; E11.40 Type 2 diabetes mellitus with diabetic neuropathy, unspecified | CPT/HCPCS: 11721 ==

== ENCOUNTER → 2024-05-30 12:58 | Outpatient (BNVA) | payer MEDICARE, MEDICAID, SELFPAY | PROVIDERS: PCP Family Medicine; Visit Provider Thoracic Surgery (Cardiothoracic Vascular Surgery) | DX: I96 Gangrene, not elsewhere classified (principal); T87.81 Dehiscence of amputation stump; Y83.8 Other surgical procedures as the cause of abnormal reaction of the patient, or of later complication, without mention of misadventure at the time of the procedure; Z89.422 Acquired absence of other left toe(s); S81.811A Laceration without foreign body, right lower leg, initial encounter; X58.XXXA Exposure to other specified factors, initial encounter | CPT/HCPCS: 11042; 97597; A6210 ==

== ENCOUNTER → 2024-06-06 13:25 | Outpatient (BNVA) | payer MEDICARE, MEDICAID, SELFPAY | PROVIDERS: PCP Family Medicine | DX: I96 Gangrene, not elsewhere classified (principal); T87.81 Dehiscence of amputation stump; Y83.8 Other surgical procedures as the cause of abnormal reaction of the patient, or of later complication, without mention of misadventure at the time of the procedure; S81.811D Laceration without foreign body, right lower leg, subsequent encounter; X58.XXXD Exposure to other specified factors, subsequent encounter | CPT/HCPCS: 11042; 97597; A6210; A6212; A6248 ==

== ENCOUNTER → 2024-06-14 08:08 | Outpatient (BNVA) | payer MEDICARE, MEDICAID, SELFPAY | PROVIDERS: PCP Family Medicine; Visit Provider Thoracic Surgery (Cardiothoracic Vascular Surgery) | DX: I96 Gangrene, not elsewhere classified (principal); T87.81 Dehiscence of amputation stump; Y83.8 Other surgical procedures as the cause of abnormal reaction of the patient, or of later complication, without mention of misadventure at the time of the procedure; S81.811D Laceration without foreign body, right lower leg, subsequent encounter; X58.XXXD Exposure to other specified factors, subsequent encounter; S80.812A Abrasion, left lower leg, initial encounter; W22.8XXA Striking against or struck by other objects, initial encounter | CPT/HCPCS: 97597; A6212 ==

== ENCOUNTER → 2024-06-18 10:23 | Outpatient (BNVA) | payer MEDICARE, MEDICAID, SELFPAY | PROVIDERS: PCP Family Medicine; Visit Provider Thoracic Surgery (Cardiothoracic Vascular Surgery) | DX: I96 Gangrene, not elsewhere classified (principal); T87.81 Dehiscence of amputation stump; Y83.8 Other surgical procedures as the cause of abnormal reaction of the patient, or of later complication, without mention of misadventure at the time of the procedure; S81.811D Laceration without foreign body, right lower leg, subsequent encounter; X58.XXXD Exposure to other specified factors, subsequent encounter; S80.812D Abrasion, left lower leg, subsequent encounter; W22.8XXD Striking against or struck by other objects, subsequent encounter | CPT/HCPCS: 11042; 97597 ==

== ENCOUNTER → 2024-06-25 13:29 | Outpatient (BNVA) | payer MEDICARE, MEDICAID, SELFPAY | PROVIDERS: PCP Family Medicine; Visit Provider Thoracic Surgery (Cardiothoracic Vascular Surgery) | DX: I96 Gangrene, not elsewhere classified (principal); T87.81 Dehiscence of amputation stump; Y83.8 Other surgical procedures as the cause of abnormal reaction of the patient, or of later complication, without mention of misadventure at the time of the procedure; Z89.422 Acquired absence of other left toe(s); L97.811 Non-pressure chronic ulcer of other part of right lower leg limited to breakdown of skin | CPT/HCPCS: 97597; A6210 ==

== ENCOUNTER → 2024-07-02 10:09 | Outpatient (BNVA) | payer MEDICARE, MEDICAID, SELFPAY | PROVIDERS: PCP Family Medicine; Visit Provider Thoracic Surgery (Cardiothoracic Vascular Surgery) | DX: E11.52 Type 2 diabetes mellitus with diabetic peripheral angiopathy with gangrene (principal); E11.621 Type 2 diabetes mellitus with foot ulcer; L97.521 Non-pressure chronic ulcer of other part of left foot limited to breakdown of skin; Z09 Encounter for follow-up examination after completed treatment for conditions other than malignant neoplasm; E55.9 Vitamin D deficiency, unspecified; Z51.81 Encounter for therapeutic drug level monitoring; E11.9 Type 2 diabetes mellitus without complications; Z13.220 Encounter for screening for lipoid disorders; R35.0 Frequency of micturition; E53.8 Deficiency of other specified B group vitamins | CPT/HCPCS: 80053; 80061; 82306; 82607; 83036; 84153; 85025; 85610; 97597; A6210 ==

== ENCOUNTER → 2024-07-08 14:07 | Outpatient (BNVA) | payer MEDICARE, MEDICAID, SELFPAY | PROVIDERS: PCP Family Medicine; Visit Provider Thoracic Surgery (Cardiothoracic Vascular Surgery) | DX: I96 Gangrene, not elsewhere classified (principal); T87.81 Dehiscence of amputation stump; Y83.8 Other surgical procedures as the cause of abnormal reaction of the patient, or of later complication, without mention of misadventure at the time of the procedure; Z89.422 Acquired absence of other left toe(s) | CPT/HCPCS: 97597; A6212 ==

== ENCOUNTER → 2024-07-15 10:27 | Outpatient (BNVA) | payer MEDICARE, MEDICAID, SELFPAY | PROVIDERS: PCP Family Medicine; Visit Provider Thoracic Surgery (Cardiothoracic Vascular Surgery) | DX: I96 Gangrene, not elsewhere classified (principal); T87.81 Dehiscence of amputation stump; Y83.8 Other surgical procedures as the cause of abnormal reaction of the patient, or of later complication, without mention of misadventure at the time of the procedure; Z89.422 Acquired absence of other left toe(s) | CPT/HCPCS: 97597 ==

== ENCOUNTER → 2024-07-22 10:09 | Outpatient (BNVA) | payer MEDICARE, MEDICAID, SELFPAY | PROVIDERS: PCP Family Medicine; Visit Provider Thoracic Surgery (Cardiothoracic Vascular Surgery) | DX: I96 Gangrene, not elsewhere classified (principal); T87.81 Dehiscence of amputation stump; Y83.8 Other surgical procedures as the cause of abnormal reaction of the patient, or of later complication, without mention of misadventure at the time of the procedure; Z89.422 Acquired absence of other left toe(s) | CPT/HCPCS: 97597 ==

== ENCOUNTER → 2024-07-29 10:28 | Outpatient (BNVA) | payer MEDICARE, MEDICAID, SELFPAY | PROVIDERS: PCP Family Medicine; Visit Provider Thoracic Surgery (Cardiothoracic Vascular Surgery) | DX: Z09 Encounter for follow-up examination after completed treatment for conditions other than malignant neoplasm (principal); Z87.2 Personal history of diseases of the skin and subcutaneous tissue | CPT/HCPCS: 99212; A6212 ==

== ENCOUNTER → 2024-09-30 13:04 | Outpatient (BNVA) | payer MEDICARE, MEDICAID, SELFPAY | PROVIDERS: PCP Family Medicine; Visit Provider Podiatrist Foot & Ankle Surgery | DX: E11.22 Type 2 diabetes mellitus with diabetic chronic kidney disease (principal); B35.1 Tinea unguium; N18.30 Chronic kidney disease, stage 3 unspecified; E11.40 Type 2 diabetes mellitus with diabetic neuropathy, unspecified; G62.9 Polyneuropathy, unspecified; L97.522 Non-pressure chronic ulcer of other part of left foot with fat layer exposed; R60.9 Edema, unspecified; E11.621 Type 2 diabetes mellitus with foot ulcer | CPT/HCPCS: 11721; 99213 ==

== ENCOUNTER → 2024-11-08 10:25 | Outpatient (BNVA) | payer MEDICARE, MEDICAID, SELFPAY | PROVIDERS: PCP Family Medicine; Referring Provider Family Medicine; Visit Provider Nurse Practitioner Family | DX: M48.062 Spinal stenosis, lumbar region with neurogenic claudication (principal) | CPT/HCPCS: 99214 ==

== ENCOUNTER → 2024-11-13 08:15 | Outpatient (BNVA) | payer MEDICARE, MEDICAID, SELFPAY | PROVIDERS: PCP Family Medicine; Visit Provider Thoracic Surgery (Cardiothoracic Vascular Surgery) | DX: I96 Gangrene, not elsewhere classified (principal); L97.821 Non-pressure chronic ulcer of other part of left lower leg limited to breakdown of skin; L97.811 Non-pressure chronic ulcer of other part of right lower leg limited to breakdown of skin; E11.52 Type 2 diabetes mellitus with diabetic peripheral angiopathy with gangrene; E11.621 Type 2 diabetes mellitus with foot ulcer; L97.522 Non-pressure chronic ulcer of other part of left foot with fat layer exposed | CPT/HCPCS: 11042; 97597; 97598; A6197; A6253 ==

== ENCOUNTER → 2024-11-20 08:45 | Outpatient (BNVA) | payer MEDICARE, MEDICAID, SELFPAY | PROVIDERS: PCP Family Medicine | DX: I96 Gangrene, not elsewhere classified (principal); I89.0 Lymphedema, not elsewhere classified; L97.821 Non-pressure chronic ulcer of other part of left lower leg limited to breakdown of skin; L97.811 Non-pressure chronic ulcer of other part of right lower leg limited to breakdown of skin; E11.52 Type 2 diabetes mellitus with diabetic peripheral angiopathy with gangrene; E11.621 Type 2 diabetes mellitus with foot ulcer; L97.521 Non-pressure chronic ulcer of other part of left foot limited to breakdown of skin | CPT/HCPCS: 97597; A6197; A6252 ==

== ENCOUNTER → 2024-11-21 10:31 | Outpatient (BNVA) | payer MEDICARE, MEDICAID, SELFPAY | PROVIDERS: PCP Family Medicine; Visit Provider Family Medicine | DX: Z00.00 Encounter for general adult medical examination without abnormal findings (principal); E11.9 Type 2 diabetes mellitus without complications; E55.9 Vitamin D deficiency, unspecified; Z51.81 Encounter for therapeutic drug level monitoring | CPT/HCPCS: 80053; 82306; 83036; 83735; 85025 ==

== ENCOUNTER → 2024-11-22 09:09 | Outpatient (BNVA) | payer MEDICARE, MEDICAID, SELFPAY | PROVIDERS: PCP Family Medicine; Visit Provider Thoracic Surgery (Cardiothoracic Vascular Surgery) | DX: E11.622 Type 2 diabetes mellitus with other skin ulcer (principal); L97.821 Non-pressure chronic ulcer of other part of left lower leg limited to breakdown of skin; L97.811 Non-pressure chronic ulcer of other part of right lower leg limited to breakdown of skin | CPT/HCPCS: 29581; 97597; A6197; J9999 ==

== ENCOUNTER → 2024-11-26 09:40 | Outpatient (BNVA) | payer MEDICARE, MEDICAID, SELFPAY | PROVIDERS: PCP Family Medicine; Visit Provider Thoracic Surgery (Cardiothoracic Vascular Surgery) | DX: E11.52 Type 2 diabetes mellitus with diabetic peripheral angiopathy with gangrene (principal); E11.622 Type 2 diabetes mellitus with other skin ulcer; L97.821 Non-pressure chronic ulcer of other part of left lower leg limited to breakdown of skin; L97.811 Non-pressure chronic ulcer of other part of right lower leg limited to breakdown of skin; Z09 Encounter for follow-up examination after completed treatment for conditions other than malignant neoplasm | CPT/HCPCS: A6252 ==

== ENCOUNTER 2024-11-27 08:37 | Outpatient (CLI) | payer MEDICARE, MEDICAID, SELFPAY ==
--- NOTE | 2024-11-27 08:40 | XRR_ITS ---
PROCEDURE INFORMATION: Exam: XR Chest Exam date and time: 11/27/2024 8:46 AM Age: 74 years old Clinical indication: Dyspnea and shortness of breath; Additional info: Dyspnea, lue swelling TECHNIQUE: Imaging protocol: Radiologic exam of the chest. Views: 2 views. COMPARISON: CR (CHEST, ) 05/06/2023 2:33 PM FINDINGS: Lungs: There is mild prominence and indistinctness of the pulmonary vasculature. There is mild splaying the primary bronchi and mild prominence of the left atrium on the lateral view. Additionally, there is mild prominence of the left atrial appendage seen on the anterior view. Mitral valve disease can not be excluded. Pleural spaces: Unremarkable. No pleural effusion. No pneumothorax. Heart/Mediastinum: See Lungs finding. Bones/joints: Unremarkable. XR/XR chest 2V* [id number] IMPRESSION: 1. There is no definite evidence of acute cardiac decompensation. 2. There are findings of mild prominence of the pulmonary vasculature, findings that may represent mild pulmonary hypertension. 3. Findings of left atrial enlargement. Mitral valve disease can not be excluded
--- NOTE | 2024-11-27 09:00 | USCV_ITS ---
Daren Fisher Age: 74 Gender: M : 1950 Exam Date: 11/27/2024 08:47 Ordering Phys: Buck Crooks MD Technologist: [facility] [place] [facility] [place] assess for DVT HISTORY: Upper extremity swelling. PROCEDURES: Venous duplex imaging was performed in only the left upper extremity. FINDINGS: No evidence of deep vein thrombosis or superficial thrombophlebitis in the left upper extremity. CONCLUSIONS No evidence of thrombus of the left upper extremity veins. Zaki Acevdeo MD (Electronically Signed) Final Date: 27 November 2024 11:47 S
== END 2024-11-27 08:38 | disposition home or self-care (01) ==
PROVIDERS: PCP Family Medicine; Visit Provider Family Medicine
DX: R06.00 Dyspnea, unspecified (principal); M79.89 Other specified soft tissue disorders; R91.8 Other nonspecific abnormal finding of lung field; I51.7 Cardiomegaly
CPT/HCPCS: 71046; 93971

== ENCOUNTER → 2024-12-03 10:20 | Outpatient (BNVA) | payer MEDICARE, MEDICAID, SELFPAY | PROVIDERS: PCP Family Medicine; Visit Provider Thoracic Surgery (Cardiothoracic Vascular Surgery) | DX: E11.52 Type 2 diabetes mellitus with diabetic peripheral angiopathy with gangrene (principal); E11.622 Type 2 diabetes mellitus with other skin ulcer; L97.821 Non-pressure chronic ulcer of other part of left lower leg limited to breakdown of skin; Z09 Encounter for follow-up examination after completed treatment for conditions other than malignant neoplasm | CPT/HCPCS: 97597 ==

== ENCOUNTER → 2024-12-10 09:50 | Outpatient (BNVA) | payer MEDICARE, MEDICAID, SELFPAY | PROVIDERS: PCP Family Medicine; Visit Provider Thoracic Surgery (Cardiothoracic Vascular Surgery) | DX: E11.52 Type 2 diabetes mellitus with diabetic peripheral angiopathy with gangrene (principal); E11.621 Type 2 diabetes mellitus with foot ulcer; L97.821 Non-pressure chronic ulcer of other part of left lower leg limited to breakdown of skin; L97.811 Non-pressure chronic ulcer of other part of right lower leg limited to breakdown of skin | CPT/HCPCS: 97597; A6252 ==

== ENCOUNTER → 2024-12-16 12:54 | Outpatient (BNVA) | payer MEDICARE, MEDICAID, SELFPAY | PROVIDERS: PCP Family Medicine; Visit Provider Thoracic Surgery (Cardiothoracic Vascular Surgery) | DX: E11.52 Type 2 diabetes mellitus with diabetic peripheral angiopathy with gangrene (principal); E11.622 Type 2 diabetes mellitus with other skin ulcer; L97.821 Non-pressure chronic ulcer of other part of left lower leg limited to breakdown of skin; L97.811 Non-pressure chronic ulcer of other part of right lower leg limited to breakdown of skin; E11.621 Type 2 diabetes mellitus with foot ulcer; L97.521 Non-pressure chronic ulcer of other part of left foot limited to breakdown of skin | CPT/HCPCS: 97597 ==

== ENCOUNTER 2025-02-03 09:26 | Outpatient (CLI) | payer BC, MEDICAID, SELFPAY ==
--- NOTE | 2025-02-03 09:33 | XR_ITS ---
WS: [id number] Exam: XR foot LT min 3V* [id number] Date/Time of Exam: 02/03/2025 9:43 AM Reason For Exam: E11.621 - Type 2 diabetes mellitus with foot ulcer No acute fracture. No sign of acute bone destruction. Amputation of the fifth ray at the level of the proximal one third of the fifth metatarsal. No soft tissue foreign bodies are seen. Soft tissue swelling and possible ulceration along the lateral aspect of the forefoot. Degenerative changes in the first MP joint and midfoot joints. Minor heel spur. XR/XR foot LT min 3V* [id number] IMPRESSION: 1. Lateral soft tissue swelling. No acute fracture or bone destruction identifi ed. 2. Status post amputation of the fifth ray as noted above.
== END 2025-02-03 09:27 | disposition home or self-care (01) ==
LOC: RAD 09:28
PROVIDERS: PCP Family Medicine; Visit Provider Thoracic Surgery (Cardiothoracic Vascular Surgery)
DX: E11.621 Type 2 diabetes mellitus with foot ulcer (principal); L97.529 Non-pressure chronic ulcer of other part of left foot with unspecified severity
CPT/HCPCS: 73630

== ENCOUNTER → 2025-03-13 09:54 | Outpatient (BNVA) | payer BC, MEDICAID, SELFPAY | PROVIDERS: PCP Family Medicine; Visit Provider Family Medicine | DX: E55.9 Vitamin D deficiency, unspecified (principal); Z51.81 Encounter for therapeutic drug level monitoring; E11.9 Type 2 diabetes mellitus without complications | CPT/HCPCS: 80053; 82306; 83036; 85025 ==